=== PATIENT | female | born 2000 | race Native Hawaiian/Other Pacific Islander ===

== ENCOUNTER 2022-07-03 17:23 | Emergency (ER) | payer MEDICAID, SELFPAY ==
[2022-07-03 17:32] VITALS: BP 113/77; PULSE 128; RESP 18; TEMP 37.2; O2SAT 99; BMI 30.2
[2022-07-03] MEDS: 0.9 % SODIUM CHLORIDE 1000 ml 1,000 ML IV (18:29)
--- NOTE | 2022-07-03 18:29 | ED.GENADULT ---
HPI - General Adult General Date Seen: 07/03/22 Chief complaint: Cough Stated complaint: Chest Pain,Shortness of Breath,Abdominal Pain Time Seen by Provider: 07/03/22 17:48 Source: patient History of Present Illness HPI narrative: Patient is a 21-year-old young woman who is 7-8 weeks with her 2nd . She presents with a 2 week history of upper respiratory symptoms including congestion, cough, headache, body aches. No fevers. She says today the cough became worse. She has chest pain when she coughs. She does not note shortness of breath. She has not had vomiting. She has not had any vaginal bleeding but says when she coughs she has some pain in her lower abdomen. She has pain in her midthoracic region when she coughs as well. No lower extremity swelling or pain. No history of DVT PE. Related Data Home Medications Medication Instructions Recorded Confirmed No Known Home Medications 07/03/22 07/03/22 Allergies Allergy/AdvReac Type Severity Reaction Status Date / Time No Known Drug Allergies Allergy Verified 07/03/22 17:36 Review of Systems Status of ROS: Reports: 10 or more systems reviewed and unremarkable except as noted in History and below [facility] Social History Smoking Status: Never smoker Do you use any of these nicotine containing products: None Second hand tobacco smoke exposure: No How often do you have a drink containing alcohol: never AUDIT-C Alcohol total score: 0 Non-prescribed substance use: denies use Exam Narrative: Exam Narrative: Vital signs as noted above. In general, an alert, nontoxic young woman. Head: Normocephalic, atraumatic. Eyes: Pupils are equal reactive. Extraocular movements are full. Conjunctivae are slightly injected. No mattering. ENT: Mucous membranes are moist. Throat is normal. Nares are congested. Neck: Supple without lymphadenopathy. No stridor. Heart: Tachycardic and regular. No murmur. Lungs: Clear bilaterally. No increased work of breathing, crackles or wheezes. Abdomen: Soft and nontender. Extremities: Well perfused. No edema. No calf tenderness. Pulses intact. Neurologic: Patient is alert and oriented to person and place. Speech is fluent. Face is symmetric. Moves all extremities equally. Affect: Normal. Skin: Warm and dry. Well perfused. Const: Vital Signs, click to edit/add: Vital Signs - 24 hr 07/03/22 17:32 07/03/22 18:39 07/03/22 18:40 Temperature 99.0 F Pulse Rate 133 H 121 H Pulse Rate [Left P ulse Oximeter] 128 H Respiratory Rate 18 Blood Pressure 123/73 Blood Pressure [Le ft Upper Arm] 113/77 Pulse Oximetry 99 98 98 Oxygen Delivery Me thod Room Air 07/03/22 18:41 07/03/22 19:00 07/03/22 19:01 Temperature Pulse Rate 123 H 115 H 118 H Pulse Rate [Left P ulse Oximeter] Respiratory Rate Blood Pressure 115/68 Blood Pressure [Le ft Upper Arm] Pulse Oximetry 97 98 98 Oxygen Delivery Me thod Documenting provider has reviewed patient's vital signs: yes Course Course Hospital Course: Overall, patient's presentation is most suggestive of a viral upper respiratory infection, rule out superimposed pneumonia, dehydration, sepsis. I do not think this represents pulmonary embolism. I did order some basic labs, will give some IV fluids given presentation of tachycardia. I am going to defer chest x-ray given her early state. Right now her lungs are clear. O2 sats are normal. Will see how her labs look. Patient feels somewhat improved after fluids. Heart rate is 118. LFTs are a little elevated with an ALT of 70 and an AST of 53. I have relayed this to her, this can be followed by Ob. At this point in would suspect fatty liver. White count is normal at 7.8, left shift with 81% neutrophils. Hemoglobin is 13.2. Platelets are 278,000. Electrolytes are unremarkable. Blood sugar is 112. Lactate is 1. Bilirubin is normal. She is positive for influenza. I am going to cover her with an antibiotic given her , left shift, tachycardia and duration of symptoms. Recommend follow-up next week for recheck with OB. Return in the meantime for worsening shortness of breath, vomiting, high fevers or other worsening. Vital Signs Vital signs: Initial Vital Signs Temperature 99.0 F 07/03/22 17:32 Temperature Source Temporal Artery Scan 07/03/22 17:32 Pulse Rate 128 H 07/03/22 17:32 Pulse Rhythm 07/03/22 17:32 Pulse Strength 3+ Normal 07/03/22 17:32 Respiratory Rate 18 07/03/22 17:32 Blood Pressure 113/77 07/03/22 17:32 Blood Pressure Mean 89 07/03/22 17:32 Blood Pressure Position Sitting 07/03/22 17:32 Pulse Oximetry 99 07/03/22 17:32 Oxygen Delivery Method 07/03/22 17:32 Vital Signs Temperature 99.0 F 07/03/22 17:32 Pulse Rate 128 H 07/03/22 17:32 Respiratory Rate 18 07/03/22 17:32 Blood Pressure 113/77 07/03/22 17:32 Pulse Oximetry 99 07/03/22 17:32 Oxygen Delivery Method 07/03/22 17:32 Temperature 99.0 F 07/03/22 17:32 Pulse Rate 118 H 07/03/22 19:01 Respiratory Rate 18 07/03/22 17:32 Blood Pressure 115/68 07/03/22 19:01 Pulse Oximetry 98 07/03/22 19:01 Oxygen Delivery Method 07/03/22 17:32 Medical Decision Making Lab Data Labs: Lab Results 07/03/22 07/03/22 07/03/22 Range/Units 17:37 18:25 18:25 WBC 7.79 (4.50-11.00) K/uL RBC 4.51 (4.00-5.20) m/uL Hgb 13.2 (12.0-16.0) gm/dL Hct 39.1 (33.0-51.0) % MCV 87 (80-100) fL MCH 29 (26-34) pg MCHC 34 (32-36) gm/dL RDW Coeff of Mary 12.6 (11.5-15.5) % Plt Count 278 (140-440) K/uL Neut % (Auto) 81.5 H (42.0-72.0) % Lymph % (Auto) 5.8 L (20-44) % Geary % (Auto) 10.1 (0.0-11.0) % Eos % (Auto) 1.9 (0.0-7.0) % Baso % (Auto) 0.4 (0.0-3.0) % Neut # (Auto) 6.30 (1.7-7.0) K/uL Lymph # (Auto) 0.50 L (0.90-2.90) K/uL Geary # (Auto) 0.80 (0.00-0.90) K/UL Eos # (Auto) 0.15 (0.00-0.50) K/uL Baso # (Auto) 0.03 (0.00-0.30) K/uL Sodium 137 (135-149) mmol/L Potassium 3.5 L (3.6-5.1) mmol/L Chloride 106 (96-114) mmol/L Carbon Dioxide 23 (20-32) mmol/L BUN 10 (5-24) mg/dL Creatinine 0.5 (0.5-1.5) mg/dL Estimated Creat Clear 138.40 Estimated GFR 135 ml/min Glucose 112 (60-115) mg/dL Lactate (0.5-1.9) mmol/L Calcium 8.8 (8.4-10.6) mg/dL Total Bilirubin 0.5 (0.1-1.5) mg/dL Direct Bilirubin 0.1 (0.0-0.5) mg/dL AST 53 H (12-35) U/L ALT 70 H (4-35) U/L Alkaline Phosphatase 70 (40-150) U/L Total Protein 7.2 (6.0-8.3) g/dL Albumin 4.3 (3.3-5.0) g/dL SARS-CoV-2 (PCR) Negative SARS-CoV-2 (Negative) Influenza Type A (PCR) POSITIVE PCR FLU A A (Negative) Influenza Type B (PCR) Negative PCR FLU B (Negative) RSV (PCR) Negative PCR RSV (Negative) 07/03/22 Range/Units 18:25 WBC (4.50-11.00) K/uL RBC (4.00-5.20) m/uL Hgb (12.0-16.0) gm/dL Hct (33.0-51.0) % MCV (80-100) fL MCH (26-34) pg MCHC (32-36) gm/dL RDW Coeff of Mary (11.5-15.5) % Plt Count (140-440) K/uL Neut % (Auto) (42.0-72.0) % Lymph % (Auto) (20-44) % Geary % (Auto) (0.0-11.0) % Eos % (Auto) (0.0-7.0) % Baso % (Auto) (0.0-3.0) % Neut # (Auto) (1.7-7.0) K/uL Lymph # (Auto) (0.90-2.90) K/uL Geary # (Auto) (0.00-0.90) K/UL Eos # (Auto) (0.00-0.50) K/uL Baso # (Auto) (0.00-0.30) K/uL Sodium (135-149) mmol/L Potassium (3.6-5.1) mmol/L Chloride (96-114) mmol/L Carbon Dioxide (20-32) mmol/L BUN (5-24) mg/dL Creatinine (0.5-1.5) mg/dL Estimated Creat Clear Estimated GFR ml/min Glucose (60-115) mg/dL Lactate 1.0 (0.5-1.9) mmol/L Calcium (8.4-10.6) mg/dL Total Bilirubin (0.1-1.5) mg/dL Direct Bilirubin (0.0-0.5) mg/dL AST (12-35) U/L ALT (4-35) U/L Alkaline Phosphatase (40-150) U/L Total Protein (6.0-8.3) g/dL Albumin (3.3-5.0) g/dL SARS-CoV-2 (PCR) (Negative) Influenza Type A (PCR) (Negative) Influenza Type B (PCR) (Negative) RSV (PCR) (Negative) Discharge Plan Discharge Clinical Impression: Influenza A, Abnormal LFTs, Patient Disposition: Home, Self-Care Condition: Improved Instructions: Influenza (ED) Additional Instructions: Tylenol as needed for pain. Antibiotic as prescribed. Follow-up with OB if not improving over the next few days to week. Maintain fluids. Return for worsening. Prescriptions: No Action No Known Home Medications Follow Up/Referrals: Sanjuanita Braun MD [Primary Care Provider] - Stand Alone Forms: [facility] [employer] Info Instructions
[2022-07-03 18:34] LABS: Basophils Absolute Auto 0.03 K/uL (0.00-0.30); Basophils Percent Auto 0.4 % (0.0-3.0); Eosinophils Absolute Auto 0.15 K/uL (0.00-0.50); Eosinophils Percent Auto 1.9 % (0.0-7.0); Hematocrit 39.1 % (33.0-51.0); Hemoglobin* 13.2 gm/dL (12.0-16.0); Immature Granulocytes Abs Auto 0.02 K/uL (0.00-0.30); Immature Granulocytes Pct Auto 0.3 %; Lymphocytes Percent Auto 5.8 % (20-44); Mean Corpuscular HGB Conc 34 gm/dL (32-36); Mean Corpuscular Hemoglobin 29 pg (26-34); Mean Corpuscular Volume 87 fL (80-100); Monocytes Percent Auto 10.1 % (0.0-11.0); Neutrophils Percent Auto 81.5 % (42.0-72.0); Platelet Count* 278 K/uL (140-440); RDW Coefficient of Variation % 12.6 % (11.5-15.5); Red Blood Count 4.51 m/uL (4.00-5.20); White Blood Count* 7.79 K/uL (4.50-11.00)
[2022-07-03 18:39] VITALS: PULSE 133; O2SAT 98
[2022-07-03 18:40] VITALS: BP 123/73; PULSE 121; O2SAT 98
[2022-07-03 18:40] LABS: PCR FLU A POSITIVE PCR FLU A (Negative); PCR FLU B Negative PCR FLU B (Negative); PCR RSV Negative PCR RSV (Negative)
[2022-07-03 18:41] VITALS: PULSE 123; O2SAT 97
[2022-07-03] MEDS: ACETAMINOPHEN 500 MG TABLET 1000 MG PO (18:46)
[2022-07-03 18:51] LABS: Albumin* 4.3 g/dL (3.3-5.0); Chloride* 106 mmol/L (96-114); Sodium* 137 mmol/L (135-149)
[2022-07-03 18:53] LABS: Creatinine* 0.5 mg/dL (0.5-1.5); Estimated Glomerular Filt Rate 135 ml/min
[2022-07-03 18:54] LABS: Alanine Aminotransferase* 70 U/L (4-35); Alkaline Phosphatase* 70 U/L (40-150); Aspartate Amino Transferase* 53 U/L (12-35); Bilirubin Direct* 0.1 mg/dL (0.0-0.5); Bilirubin Total* 0.5 mg/dL (0.1-1.5); Blood Urea Nitrogen* 10 mg/dL (5-24); Calcium* 8.8 mg/dL (8.4-10.6); Carbon Dioxide* 23 mmol/L (20-32); Glucose* 112 mg/dL (60-115); Potassium* 3.5 mmol/L (3.6-5.1); Slide Review Reflex No; Total Protein* 7.2 g/dL (6.0-8.3)
[2022-07-03 18:54] LABS: SARS PCR* Negative SARS-CoV-2 (Negative)
[2022-07-03 19:00] VITALS: PULSE 115; O2SAT 98
[2022-07-03 19:01] VITALS: BP 115/68; PULSE 118; O2SAT 98
== END 2022-07-03 20:06 | disposition home or self-care (01) ==
PROVIDERS: Emergency Provider Emergency Medicine; PCP Family Medicine
DX: J10.1 Influenza due to other identified influenza virus with other respiratory manifestations (principal); O26.611 Liver and biliary tract disorders in pregnancy, first trimester; R79.89 Other specified abnormal findings of blood chemistry; Z3A.08 8 weeks gestation of pregnancy
CPT/HCPCS: 36415; 80048; 80076; 83605; 85025; 87502; 87634; 87635; 96360; 99284; A9270; J7030

== ENCOUNTER 2023-01-26 13:00 | Emergency (ER) | payer MEDICAID, SELFPAY ==
[2023-01-26 13:07] VITALS: BP 100/70; PULSE 74; RESP 24; TEMP 35.6; O2SAT 97; BMI 31.6
--- NOTE | 2023-01-26 13:30 | CRLHL7_ITS ---
For Patients: As a result of the Century Cures Act, medical imaging exams and procedure reports are released immediately into your electronic medical record. You may view this report before your referring provider. If you have questions, please contact your health care provider. INDICATION: Cough, shortness of breath TECHNIQUE: Chest 2 views. COMPARISON: None FINDINGS: The heart is normal in size. The pulmonary vasculature is within normal limits. The lungs are clear without focal consolidation, pleural effusion or pneumothorax. Portions of the right lung apex are obscured by but looks to be the patient`s hair. The bones are unremarkable. Surgical clips within the right upper quadrant of the abdomen. IMPRESSION: No acute process. Dictated by Danette Benites MD @ 01/26/2023 2:30:25 PM Dictated by: Danette Benites MD @ 01/26/2023 14:30:54 (Electronically Signed)
[2023-01-26] MEDS: IPRAT-ALBUT 0.5-2.5 MG/3 ML NEB 1 NEB IH (13:38)
--- NOTE | 2023-01-26 14:30 | ED_ITS ---
HPI - General Adult General Date Seen: 01/26/23 Chief complaint: Shortness of Breath/Dyspnea Stated complaint: shortness of breath Time Seen by Provider: 01/26/23 13:11 Source: patient Mode of arrival: ambulatory Limitations: no limitations History of Present Illness HPI narrative: Patient is a 22-year-old woman who is 36 weeks . She had called the clinic today due to cold symptoms and shortness of breath and was advised to come to the ER as the clinic is closed. She has been sick for couple of days with cough and congestion started to feel short of breath this morning. She has also had a right-sided headache for a couple of days. She has not had fevers. She is 36 weeks , uncomplicated , . She apparently went to the center prior to coming here and receive some fluids. Headache is feeling little better. Related Data Home Medications Medication Instructions Recorded Confirmed No Known Home Medications 07/03/22 01/26/23 Previous Rx's Medication Instructions Recorded albuterol sulfate 90 mcg/actuation 2 puff inhalation 6XD PRN 01/26/23 aerosol inhaler shortness of breath or wheezing #6.7 grams amoxicillin 875 mg-potassium 1 tab PO BID #20 tabs 01/26/23 clavulanate 125 mg tablet Allergies Allergy/AdvReac Type Severity Reaction Status Date / Time No Known Drug Allergies Allergy Verified 01/26/23 09:26 Review of Systems Status of ROS: Reports: 6 or more systems reviewed and unremarkable except as noted in History and below PFSH PFSH Social History What is your current living situation?: I presently have a place to live Problems where you live: no known problems In the past 12 months, utilities in danger of being shut off: no In the past 12 mos, have been you worried that your food would run out before you had money to buy more?: never true In the past 12 mos, the food you bought just didn't last and you didn't have money to buy more?: never true Smoking Status: Never smoker Do you use any of these nicotine containing products: None Second hand tobacco smoke exposure: No How often do you have a drink containing alcohol: never AUDIT-C Alcohol total score: 0 Non-prescribed substance use: denies use How often does anyone, including family, friends and others, physically hurt you : never How often does anyone, including family, friends and others, insult or talk down to you: never How often does anyone, including family, friends and others, threaten you with harm: never How often does anyone, including family, friends and others, scream or curse at you: never Exam Narrative: Exam Narrative: Vital signs as noted above. In general, an alert, well-appearing patient. Coughing, congested. Head: Normocephalic, atraumatic. Eyes: Pupils are equal reactive. Extraocular movements are full. Conjunctivae are normal. ENT: Mucous membranes are moist. Throat is normal. Nares congested. Neck: Supple without lymphadenopathy. Heart: Regular rate and rhythm. No murmur or rub. Lungs: Clear bilaterally. No increased work of breathing, crackles or wheezes. Breath sounds somewhat decreased bilaterally. Abdomen: Gravid and nontender. Extremities: Well perfused. No edema. No calf tenderness. Pulses intact. Neurologic: Patient is alert and oriented to person and place. Speech is fluent. Face is symmetric. Moves all extremities equally. Affect: Normal. Skin: Warm and dry. Well perfused. Const: Vital Signs, click to edit/add: Vital Signs - 24 hr 01/26/23 13:07 Temperature 96.0 F L Pulse Rate [Pulse Oximeter] 74 Respiratory Rate 24 Blood Pressure [Ri ght Upper Arm] 100/70 Pulse Oximetry 97 Oxygen Delivery Me thod Room Air Documenting provider has reviewed patient's vital signs: yes Course Course Hospital Course: She did not have any overt wheezing here but sounds a little decreased, give her DuoNeb but she does feel improved and sounds better in terms of air movement. I think her shortness of breath is likely related to some bronchospasm, I do not have suspicion of pulmonary embolism. She had a chest x-ray which by my review is negative. Final radiology report is likewise negative. We talked about her headache which sounds somewhat consistent with sinus congestion. Discussed that symptoms are likely viral although I have a lower threshold for treatment during . She would prefer to treat with antibiotics and so I will prescribe Augmentin for that. Albuterol as needed for chest congestion or shortness of breath. OB follow-up this week as planned unless symptoms worsen at which time she should be seen sooner or return to the ER. Vital Signs Vital signs: Initial Vital Signs Temperature 96.0 F L 01/26/23 13:07 Temperature Source Temporal Artery Scan 01/26/23 13:07 Pulse Rate 74 01/26/23 13:07 Pulse Rhythm Regular 01/26/23 13:07 Respiratory Rate 24 01/26/23 13:07 Blood Pressure 100/70 01/26/23 13:07 Blood Pressure Mean 80 01/26/23 13:07 Blood Pressure Position Supine 01/26/23 13:07 Pulse Oximetry 97 01/26/23 13:07 Oxygen Delivery Method Room Air 01/26/23 13:07 Vital Signs Temperature 96.0 F L 01/26/23 13:07 Pulse Rate 74 01/26/23 13:07 Respiratory Rate 24 01/26/23 13:07 Blood Pressure 100/70 01/26/23 13:07 Pulse Oximetry 97 01/26/23 13:07 Oxygen Delivery Method Room Air 01/26/23 13:07 Temperature 96.0 F L 01/26/23 13:07 Pulse Rate 74 01/26/23 13:07 Respiratory Rate 24 01/26/23 13:07 Blood Pressure 100/70 01/26/23 13:07 Pulse Oximetry 97 01/26/23 13:07 Oxygen Delivery Method Room Air 01/26/23 13:07 Discharge Plan Discharge Clinical Impression: Bronchitis, 36 weeks gestation of , Sinusitis Patient Disposition: Home, Self-Care Condition: Stable Instructions: Acute Bronchitis (ED) Additional Instructions: Medications as prescribed. Follow with OB this week as planned. Return at any time or call clinic for worsening symptoms. Prescriptions: New albuterol sulfate 90 mcg/actuation HFA aerosol inhaler 2 puff inhalation 6XD PRN (Reason: shortness of breath or wheezing) Qty: 6.7 0RF amoxicillin-pot clavulanate 875-125 mg tablet 1 tab PO BID Qty: 20 0RF No Action No Known Home Medications Follow Up/Referrals: Sanjuanita Braun MD [Primary Care Provider] - Stand Alone Forms: [facility] Info Instructions
== END 2023-01-26 14:35 | disposition home or self-care (01) ==
PROVIDERS: Emergency Provider Emergency Medicine; PCP Family Medicine
DX: J20.9 Acute bronchitis, unspecified (principal); Z3A.36 36 weeks gestation of pregnancy
CPT/HCPCS: 59025; 71046; 81001; 81003; 81015; 87086; 87186; 87635; 94640; 99213; 99284; A9270; J2405; J7120

== ENCOUNTER 2023-02-06 17:50 | Inpatient (IN) | payer MEDICAID, SELFPAY ==
[2023-02-06] VITALS (33 sets, daily range): BP systolic 99–135; BP diastolic 50–76; PULSE 65–163; RESP 16–18; TEMP 36.3–36.9; O2SAT 81–100; BMI 32.3
[2023-02-06 14:51] LABS: Amnisure Rom* POSITIVE
[2023-02-06 14:57] LABS: Clue Cells No Clue Cells Seen (None Seen); Trichomonas No Trichomonas Seen (None Seen); Yeast No Yeast Seen (None Seen)
--- NOTE | 2023-02-06 19:54 | PM.OBHPLI ---
OB - H&P: HPI Labor/Induction History of Present Illness Date Seen: 02/06/23 Chief Complaint: The patient is a 22 year old 2 para 1 at 3+4 weeks gestation by 1st trimester US, who presents in early labor. Chief complaint: Maternity : 2 Para: 1 Narrative: Maria Del Rosario Jackson is a 22 year old at 37+4 by 1st trimester US who presented to labor and delivery for blood tinged mucous noted when using the bathroom this morning. She reports losing a large mucous plug last night followed by irregular, uncomfortable cramping overnight. This morning she had blood tinged mucous when she used the bathroom. Denies leaking fluid, but has been cramping throughout the morning. Evaluation in triage showed negative wet prep, + amnisure, cervix 4/50/-1, bulging bag of angulo, with mild contractions on NST every 5-8 minutes. Over the course of a few hours, she progressed to 6 cm and contractions are now more uncomfortable. History of Present Dating criteria: based on 1st trimester US only care: good care Ultrasounds: normal 1st trimester US and normal mid trimester US Medical complications: none Labs Blood type: O (+) positive Rubella: immune RPR/VDLR: nonreactive GBS status: negative HBsAG: negative Meds Home Medications and Allergies Home Medications Medication Instructions Recorded Confirmed Type cefdinir 300 mg capsule 300 mg PO BID 02/06/23 02/06/23 History Allergies Allergy/AdvReac Type Severity Reaction Status Date / Time No Known Drug Allergies Allergy Verified 02/06/23 18:27 OB - H&P: Exam Physical Exam: Vital signs: Temp Pulse Resp BP Pulse Ox 98.4 F 80 16 122/61 98 02/06/23 18:40 02/06/23 14:10 02/06/23 18:40 02/06/23 14:10 02/06/23 14:10 Constitutional: Constitutional: no acute distress Routine HEENT Exam: Head: Present atraumatic Eye: Present EOMI and normal appearance ENT: Present mucous membranes moist Routine Neck Exam: Neck: Present full ROM Routine Respiratory Exam: Respiratory: Present CTA bilaterally Routine Cardiovascular Exam: Cardiovascular: RRR Detailed Labor and Delivery Exam: Patient Gravid: Yes Dilation (cm): 6 Effacement (%): 50 Cervix position: posterior Consistency: soft Contraction frequency (min): 4 Contraction intensity: Moderate Fetus (Single): Station: -1 Amniotic Membrane Status: intact (? ROM with positive amnisure, but no ongoing leaking) Monitor Accelerations: Present Monitor Decelerations: None [employer] Variability: Moderate (6-25) Routine Extremities Exam: Comments: no swelling Routine Neurological Exam: Present alert, oriented X3, CN II-XII intact and moving all extremities Routine Psychiatric Exam: Present normal affect OB - Problem Based A/P Additional Plan (1) Term : Status: Acute (2) Active labor: Status: Acute Plan Patient in active labor with possible ROM. Continue expectant management. Patient desires epidural for pain control and she will request as needed. Once comfortable, discussed AROM to augment labor if needed. Anticipate .
[2023-02-06] MEDS: LACTATED RINGERS 1000 ML 1,000 ML IV ×2 (20:25→21:42)
[2023-02-06] MEDS: ROPIVACAINE 0.2 % PF 10 ML INJ 20 MG EPIDURAL (21:21)
[2023-02-06] MEDS: LIDOCAINE 2% (PF) 5 ML VIAL EPIDURAL (21:21)
[2023-02-06] MEDS: ROPIVACAINE 0.2% 100 ml 100 ML 12 MG EPIDURAL (21:25)
--- NOTE | 2023-02-06 21:30 | PM.ANBPRC ---
[facility] Social History What is your current living situation?: I presently have a place to live Problems where you live: no known problems In the past 12 months, utilities in danger of being shut off: no In the past 12 mos, have been you worried that your food would run out before you had money to buy more?: never true In the past 12 mos, the food you bought just didn't last and you didn't have money to buy more?: never true Smoking Status: Never smoker Do you use any of these nicotine containing products: None Second hand tobacco smoke exposure: No How often do you have a drink containing alcohol: never AUDIT-C Alcohol total score: 0 Non-prescribed substance use: denies use How often does anyone, including family, friends and others, physically hurt you: never How often does anyone, including family, friends and others, insult or talk down to you: never How often does anyone, including family, friends and others, threaten you with harm: never How often does anyone, including family, friends and others, scream or curse at you: never Meds Home Medications and Allergies Home Medications Medication Instructions Recorded Confirmed Type cefdinir 300 mg capsule 300 mg PO BID 02/06/23 02/06/23 History Allergies Allergy/AdvReac Type Severity Reaction Status Date / Time No Known Drug Allergies Allergy Verified 02/06/23 18:27 Results Labs Labs: Laboratory Results - last 24 hr 02/06/23 02/06/23 14:25 14:40 Membrane Rupture POSITIVE Vaginal Trichomonas No Trichomonas Seen Vaginal Yeast No Yeast Seen Vaginal Clue Cells No Clue Cells Seen Vital Signs Vital Signs: Last Vital Signs Temp 98.4 F 02/06/23 20:48 Pulse 76 02/06/23 21:29 Resp 18 02/06/23 19:45 BP 120/65 02/06/23 21:29 Pulse Ox 96 02/06/23 21:30 Weight: 77.564 kg Height: 154.94 cm Anesthesia Procedures Epidural Insertion Patient Location: OB Start Time: 20:50 Stop Time: 21:32 Start Date: 02/06/23 Stop Date: 02/06/23 Reason for Block: procedure for pain Patient Position: sitting Performed By: Manty,Timur T Preanesthetic Checklist: IV checked, risks and benefits discussed, surgical consent, monitors and equipment checked, pre-op evaluation, timeout performed and anesthesia consent Prep: chlorhexidine gluconate Monitoring: blood pressure monitoring, continuous pulse oximetry and heart rate Approach: midline Vertebral Space: lumbar (1-5) Needle Type: Tuohy needle Injection Technique: continuous catheter Needle gauge: 17 Needle Length (cm): 10 cm Needle Insertion Depth (cm): 7 Catheter Gauge: 19 Catheter Type: multi-orifice Catheter at skin depth (cm): 13 Test Dose Result: negative and lidocaine 1.5% with epinephrine 1 to 200,000
--- NOTE | 2023-02-06 22:00 | P.OBPN_ITS ---
Subjective Date Seen: 02/06/23 Narrative: Maria Del Rosario is a 22 yo at 37+4 who presented in early labor, but progressed to active labor. Her contractions have become stronger and she requested an epidural. She is now comfortable. She underwent AROM with return of a large amount of clear fluid. Objective Vital Signs: Last Vital Signs Temp 98.4 F 02/06/23 20:48 Pulse 91 02/06/23 21:55 Resp 18 02/06/23 19:45 BP 117/62 02/06/23 21:55 Pulse Ox 100 02/06/23 21:45 Pelvic Exam Dilation (cm): 8 Effacement (%): 80 Station: -1 Contractions Monitor mode: External Contraction Frequency: 3-5 Contraction pattern: Regular Contraction intensity: Moderate Assessment Station: -1 Amniotic Membrane Status: AROM Status: Category l Heart Rate Baseline: 135 Senior Living Variability: Moderate (6-25) Monitor Accelerations: Present Monitor Decelerations: None Plan Plan: IUP at 37+4 in active labor. Epidural for analgesia. AROM with clear fluid. Anticipate an .
[2023-02-06] MEDS: OXYTOCIN 30 unit/500 ML in NS 30 UNIT/500 ML BAG 300 UNIT IVPB (23:44)
--- NOTE | 2023-02-06 23:58 | W.PM.VAGD1_ITS ---
Procedure Delivery date: 02/06/23 Procedure Done: Global Intrapartal Events: None Delivery augmentation: rupture of membranes Delivery monitor: external FHT and external uterine Route of delivery: Episiotomy description: None Laceration description: None Estimated blood loss (mL): 350 Anesthesia type: Epidural Narrative: The patient is a 22 year-old admitted on 02/06/2023 at 37 Weeks, 4 Days gestation for active labor.? Cervical exam on admission was 4 cm/50 % effaced/-1 station with membranes intact (although had a positive amnisure with no visible fluid) in vertex presentation.? Contractions were every 5-8 minutes.? heart rate demonstrated baseline 140 bpm with moderate variability, + accelerations, - decelerations; a category 1 tracing.? AROM occurred at 1800 with clear fluid. ? Labor Analgesia:? epidural ? Pitocin:? no ? Labor onset:? 1750 ? Complete:? 2314 ? Pushing:? 2318 ? heart tones during second stage were category 1. ? At 2342 a viable female delivered in vertex OA presentation over intact perineum via spontaneous vaginal delivery.? was placed on maternal abdomen.? Cord was clamped and cut after a 30-60 second delay.? Nose and mouth were bulb suctioned.? Infant weight pending.? 9 at 1 minute and 9 at 5 minutes.? Shoulder dystocia: no.? Nuchal cord: no. ? Placenta delivered spontaneously and complete at 2345 with a 3 vessel cord. ? Mother and were stable after delivery. ? Lacerations:? none. ? Blood loss: 350 mL. Blood loss measurement type: QBL ? Sponge and needles counts are correct. [place] Infant Gender: Female presentation: vertex Placental Delivery Description: Spontaneous Cord Description: 3 Vessels
[2023-02-07] VITALS (22 sets, daily range): BP systolic 90–122; BP diastolic 63–78; PULSE 55–88; RESP 16–18; TEMP 36.5–37.1; O2SAT 96–98
[2023-02-07] MEDS: IBUPROFEN 600 MG TABLET PO ×2 (02:48→11:00)
[2023-02-07] MEDS: LANOLIN CREAM 1 APPLIC TOPICAL (05:22)
--- NOTE | 2023-02-07 13:07 | PM.OBPNVD1 ---
OB - PN:Subj Subjective Time Seen by Provider: 00:15 Date Seen: 02/07/23 Interval history: Maria Del Rosario is a seen after an . She is doing well. Patient comments OB post-: no complaints OB - PN: Obj Exam Physical Exam: Vital signs: Temp Pulse Resp BP Pulse Ox O2 Del Method 97.8 F 82 16 101/63 97 Room Air 02/07/23 11:14 02/07/23 11:14 02/07/23 11:14 02/07/23 11:14 02/07/23 11:14 02/07/23 11:14 Constitutional: Constitutional: no acute distress Routine Abdominal Exam: Fundus: Present firm Comments: at umbilicus OB - PN: Obj Data Labs Labs: Laboratory Results - last 24 hr 02/06/23 02/06/23 14:25 14:40 Membrane Rupture POSITIVE Vaginal Trichomonas No Trichomonas Seen Vaginal Yeast No Yeast Seen Vaginal Clue Cells No Clue Cells Seen OB - PN: A/P Delivery Assessment and Plan (1) Vaginal delivery: Status: Acute Plan Plan: routine care Comments: likely d/c tomorrow.
--- NOTE | 2023-02-08 07:26 | P.DS_ITS ---
DS: Providers Provider Time Seen by Provider: : Date Seen: 02/08/23 Date of admission: 02/06/23 17:50 Primary care physician: Sanjuanita Braun MD Admitting Clinician: Sanjuanita Braun MD Attending Physician on discharge: Hazel Srivastava MD Date of Discharge: 02/08/23 DS: Diagnosis Discharge Diagnosis (1) Vaginal delivery: Status: Acute (2) Term : Status: Acute Exam Narrative: Exam Narrative: General appearance: Well-appearing adult female. Alert, oriented and appropriate. Sitting up in hospital bed. HEENT: EOMI, no conjunctival injection or discharge. MMM. Neck: Supple. CV: RRR, no rubs, murmurs or extra heart sounds. Pulm: CTAB, no wheezes, rales or rhonchi. Abdomen: Soft, non-tender. Fundus palpated 1 cm below the umbilicus. MSK: Moving all extremities. Ext: Warm and well-perfused. No LE edema. Skin: No rashes appreciated over exposed skin. Neuro: Grossly normal strength and sensation. No focal deficits. Psych: Normal affect. Const: Vital Signs, click to edit/add: Vital Signs - 24 hr 02/07/23 07:50 02/07/23 11:14 02/07/23 17:09 Temperature 98.0 F 97.8 F 97.7 F Pulse Rate [Pulse Oximeter] 80 82 55 L Respiratory Rate 16 16 16 Blood Pressure [Le ft Arm] 101/63 101/63 100/65 Pulse Oximetry 97 97 98 Oxygen Delivery Me thod Room Air Room Air Room Air 02/07/23 19:58 02/07/23 23:00 Temperature 98.1 F 98.1 F Pulse Rate [Pulse Oximeter] 66 70 Respiratory Rate 16 18 Blood Pressure [Le ft Arm] 102/64 90/66 Pulse Oximetry 98 98 Oxygen Delivery Me thod Room Air Room Air OB - DS: Summary Hospital Course Hospital Course: The patient is a 22 year old at 37+4 weeks gestation that was admitted to the Center on 02/06/23 for labor. She had an uncomplicated vaginal d elivery. She delivered a viable female . She is breast and bottle feeding. the patient has done well. Peripartum Data Infant delivery method: Vaginal Laceration description: None complications: none Gender: Female Discharge Plan: Home Status at Discharge Functional status at discharge: independent ambulation Overall status at discharge: patient is progressing back to baseline Time Spent with Patient Time attestation: Total time spent providing and/or coordinating discharge services: Time spent: Less than 30 minutes Discharge Plan Discharge Disposition: Home, Self-Care Date of Admission: 02/06/23 17:50 Attending Provider on Discharge: Hazel Srivastava Primary Care Provider: Sanjuanita Braun Condition: Stable Anticipated Discharge Date/Time: 02/08/23 07:22 Discharge Medications: New acetaminophen 500 mg Tablet 1,000 mg PO Q6H PRNQty: 30 0RF docusate sodium 100 mg Capsule 100 mg PO DAILY Qty: 30 0RF ibuprofen 600 mg Tablet 600 mg PO Q6H PRNQty: 30 0RF Continued albuterol sulfate 90 mcg/actuation HFA aerosol inhaler 2 puff inhalation 6XD PRN (Reason: shortness of breath or wheezing) Qty: 6.7 0RF Discontinued cefdinir 300 mg capsule 300 mg PO BID Discharge Orders: Discharge Order (Routine); Ordered 02/08/23 Ordered By: Hazel Srivastava Patient Education: OB Vaginal/Breast Feeding Activity Level: Activity as Tolerated Discharge Diet: Regular Follow Up Appointments: Sanjuanita Braun MD [Primary Care Provider] - (6 weeks post-) Forms: [facility] Info Instructions
[2023-02-08 09:01] VITALS: BP 106/68; PULSE 80; RESP 18; TEMP 36.4; O2SAT 97
[2023-02-08] MEDS: IBUPROFEN 600 MG TABLET PO (09:12)
[2023-02-08] MEDS: DOCUSATE SODIUM 100 MG CAPSULE PO (09:12)
[2023-02-08 16:13] VITALS: BP 104/66; PULSE 75; RESP 16; TEMP 36.7
== END 2023-02-08 17:00 | disposition home or self-care (01) | DRG 807 ==
LOC: OB OUT 18:06 → OB 18:06
PROVIDERS: Admitting Provider Family Medicine; PCP Family Medicine; Visit Provider Family Medicine
DX: O80 Encounter for full-term uncomplicated delivery (principal); Z37.0 Single live birth; Z3A.37 37 weeks gestation of pregnancy
CPT/HCPCS: 01967; 36415; 81003; 84112; 85018; 87210; A9270; J2371; J2795; J7120

== ENCOUNTER 2023-11-08 17:04 | Outpatient (CLI) | payer MEDICAID, SELFPAY ==
--- OUTSIDE RECORDS SUMMARY | 2023-11-08 17:06 | XMS_ITS | Clinical Summary ---
Author Name Unknown Organization [facility] Address [place], [place] [address] Care Team Providers Care Cardiology Clinical Nurse Specialist Name Role Phone AparnaSanjuanita MD Primary Care Provider Allergies No known active allergies Medications Medication Sig Dispensed Refills Start Date End Date Status vit 28/iron fum/folic (multivitamin folic acid 1 mg) Take 1 Tablet by mouth once daily. 0 07/13/2022 Active Active Problems Problem Noted Date Diagnosed Date Encounter for supervision of normal in first trimester 08/26/2023 #3 08/13/2023 Overview: Estimated Date of Delivery: 03/14/24 Patient's last menstrual period was 06/08/2023 (approximate). GBS- 28wk labs- Last Tdap- 12/12/22 Last Flu vaccine- 2018 OB Labs: ABORH Date Value Ref Range Status 08/09/2023 O Rh Positive Final ANTIBODY SCREEN Date Value Ref Range Status 08/09/2023 Negative Negative Final TREPONEMA PALLIDUM Date Value Ref Range Status 08/09/2023 Non-Reactive Non-Reactive Final RUBELLA IGG ANTIBODY Date Value Ref Range Status 08/09/2023 1.48 >=1.00 Index Final INTERPRETATION Date Value Ref Range Status 08/09/2023 Positive Final Comment: Presence of detectable IgG antibodies. A positive result generally indicates exposure to the virus or previous vaccination, but is not an indication of active infection or stage of disease. HBSAG Date Value Ref Range Status 08/09/2023 Nonreactive Nonreactive Final HEPATITIS C ANTIBODY Date Value Ref Range Status 08/09/2023 Non-Reactive Non-Reactive Final Comment: Please note, per www.CDC.gov: If a patient is known to be at high risk of HCV infection, or is symptomatic, and the physician's suspicion of HCV infection is high, HCV RNA testing is often employed and is of diagnostic value, even after an initial negative anti-HCV test result. HIV-1/HIV-2 SCREEN Date Value Ref Range Status 08/09/2023 Non-Reactive Non-Reactive Final Comment: HIV-1 p24 and HIV-1/HIV-2 Ab Not Detected. HEMOGLOBIN Date Value Ref Range Status 08/09/2023 12.4 12.0 - 16.0 g/dL Final PLATELET COUNT Date Value Ref Range Status 08/09/2023 336 140 - 440 thou/cu mm Final CHLAMYDIA PROBE Date Value Ref Range Status 08/09/2023 Negative Final N GONORRHOEAE PROBE Date Value Ref Range Status 08/09/2023 Negative Final No Known Allergies OB History Para Term AB Living 3 2 2 0 0 2 SAB IAB Ectopic Multiple Live Births 0 0 0 0 2 # Outcome Date GA Lbr Jhonatan/2nd Weight Sex Delivery Anes PTL Lv 3 Current 2 Term 02/06/23 37w4d 3.23 kg (7 lb 2 oz) F Vag N LOBITO Name: Em Apgar1: 9 Apgar5: 9 1 Term 04/09/19 39w1d 3.15 kg (6 lb 15 oz) F Vag EPIDURAL N LOBITO Name: Gracie Past Medical History: . Date GBS (group B Streptococcus carrier), +RV culture, currently 2018 No Significant Past Medical History Past Surgical History: . Laterality Date (IA) SC LAP APPENDECTOMY 08/26/14 LAPAROSCOPIC CHOLECYSTECTOMY 04/23/2019 Dr. Bejarano [facility] #3 Problems (from 08/09/23 to present) No problems associated with this episode. Maribel Win RN ....08/13/2023 12:22 PM Pap smear for cervical cancer screening 07/30/19 23 Overview: 06/2022 NIL Plan: Pap/HPV due in 3 years Gallstones 03/31/2019 Hidradenitis 06/09/2014 Vitamin D deficiency 02/05/2014 Estimated Date of Delivery Comme nts Yes 03/20/2024 Based on Ultraso und Resolved Problems Problem Noted Date Diagnosed Date Resolved Date Encounter for supervision of normal in first trimester 07/13/2022 08/13/2023 Overview: Estimated Date of Delivery: 02/23/22 (US). Patient's last menstrual period was 03/15/2022 (approximate). GBS- Last Tdap- 01/27/19 Last Flu vaccine- 09/16/18 Glucose (GTT) result- OB labs: Recent Labs 07/19/22 1329 HGB 12.7 ABORH O Rh Positive RCBANTIBODY Negative TREPONEPALLI Negative RUBELLAIGG 1.52 Positive HEPBSAGSCRLC Negative No Known Allergies OB History Para Term AB Living 2 1 1 0 0 1 SAB IAB Ectopic Multiple Live Births 0 0 0 0 1 # Outcome Date GA Lbr Jhonatan/2nd Weight Sex Delivery Anes PTL Lv 2 Current 1 Term 04/09/19 39w1d 3.15 kg (6 lb 15 oz) F Vag EPIDURAL N LOBITO Name: Gracie Past Medical History: . Date ? ? No Significant Past Medical History Past Surgical History: . Laterality Date ? ? (IA) SC LAP APPENDECTOMY 08/26/14 ? ? LAPAROSCOPIC CHOLECYSTECTOMY 04/23/2019 Dr. RichardsDarci [facility] No data on file. Problems (from 06/25/22 to present) No problems associated with this episode. Maribel Win RN ....07/19/2022 3:43 PM Encounter for supervision of normal first in third trimester 09/16/2018 08/13/2023 Overview: Component Latest Ref Rng & Units 03/17/2019 03/17/2019 03/17/2019 3:00 PM 3:00 PM 3:21 PM Culture RESULT (A) Streptococcus Group B HEMOGLOBIN 12.0 - 16.0 g/dL 11.3 (L) MCV 80 - 100 fL 88 Component Latest Ref Rng & Units 01/27/2019 TREPONEMA PALLIDUM Negative Negative Estimated Date of Delivery: 04/15/19 Patient's last menstrual period was 07/09/2018 (approximate). Last Tdap- 01/27/2019 Last Flu vaccine- 09/16/2018 Glucose (GTT) result- Component Latest Ref Rng & Units 01/27/2019 HEMOGLOBIN 12.0 - 16.0 g/dL 11.3 (L) MCV 80 - 100 fL 92 GLUCOSE,GESTATIONAL 65 - 139 mg/dL 105 20 week US: IMPRESSION: 1.Breech presentation. 2.No intrinsic abnormalities noted on anatomic survey. 3.Composite ultrasound age 19 weeks 2 days with DASH of 04/21/2019 with an earlier established DASH of 04/15/2019. No Known Allergies OB History Para Term AB Living 1 0 0 0 0 0 SAB TAB Ectopic Multiple Live Births 0 0 0 0 0 # Outcome Date GA Lbr Jhonatan/2nd Weight Sex Delivery Anes PTL Lv 1 Current Create lab flowsheet for OB labs- Component Latest Ref Rng & Units 09/16/2018 HEMOGLOBIN 12.0 - 16.0 g/dL 11.8 (L) MCV 80 - 100 fL 89 ANTIBODY SCREEN Negative Negative SPECIMEN EXPIRATION DATE/TIME 09/19/18 23:59 HIV-1/HIV-2 ANTIBODY Non-Reactive Non-Reactive ABORH O Rh Positive HBSAG Nonreactive Nonreactive TREPONEMA PALLIDUM Negative Negative Past Medical History: Diagnosis Date ? ? No Significant Past Medical History Past Surgical History: Procedure Laterality Date ? ? SC LAP APPENDECTOMY 08/26/14 No data on file. 1st pregnacy Problems (from 09/12/18 to present) No problems associated with this episode. Alison Yañez, BATOOLC.....09/18/2018 10:15 AM Encounters Date Type Department Care Team Description 11/08/2023 2:25 PM CDT OB Encounter [facility] [address] [place] [address] Sanjuanita Braun MD Care (Follow up from L&D. When she goes to stand up she has a lot of pain and pressure and feels like there is an egg in there. If she lays on her back and lift her legs all pain and discomfort seems to go away.) 11/08/2023 Telephone [facility] [address] [place] [address] Sanjuanita Braun MD fyi 11/08/2023 Travel 10/31/2023 11:20 AM CDT OB Encounter [facility] [place] [address] [address] Sanjuanita Braun MD Care (19w 6d/) 10/31/2023 10:30 AM CDT Ancillary Procedure [facility] [place] [address] [place] [address] [address] 10/31/2023 Travel 10/02/2023 3:15 PM CDT OB Encounter [facility] [place] [address] [place] [address] [address] Sanjuanita Braun MD Care (15wk 5d) 10/02/2023 Travel 09/17/2023 Telephone [facility] [place] [address] [place] [address] [address] Sanjuanita Braun MD Appointment Request 09/02/2023 Telephone [facility] [place] [address] [place] [address] [address] Sanjuanita Braun MD Results 08/31/2023 Orders Only [facility] Scanner 1 scan: (1-Ord) AMARA 08/26/2023 9:45 AM GRATING MACHINE OPERATOR Ancillary Procedure [facility] [place] [address] [place] [address] [address] 08/26/2023 8:15 AM GRATING MACHINE OPERATOR OB Encounter [facility] [place] [address] [place] [address] [address] Sanjuanita Braun MD Care (11w 2d) 08/26/2023 Travel 08/09/2023 2:30 PM GRATING MACHINE OPERATOR OB Encounter [facility] [place] [address] [place] [address] [address] Education (RN OB intake) 08/09/2023 Travel from Last 3 Months Immunizations Name Administration Dates Next Due Hepatitis A (Peds) 05/11/2008,09/30/2007 Hepatitis B (Peds) 02/03/2008,09/30/2007, 008 Human Papilloma Virus Vaccine 09/09/2012, 011,07/25/2010 Inactivated Polio Vaccine 09/08/2014,,09/30/2007,08/05 Influenza, IIV3 (Age 6-35 mos) 09/09/2012 Influenza, IIV3 (Age >=3 years) 09/30/2007 Influenza, IIV4 09/16/2018 Influenza,LAIV4 Live Intrana deniz (Flumist) 07/25/2010,05/11/2008 MMR 09/30/2007,08/05/2007 Meningococcal Vaccine (Menactra) 07/25/2010 Meningococcal Vaccine (Menveo) 07/22/2018 Td, Preservative Free (age >= 7 Years) 8,09/30/2007,08/05/2007 Tdap 12/12/2022,01/27/2019,07/25/2010 Varicella Vaccine 12/02/2007,08/05/2007 Family History Medical History Relation Name Comments No Known Problems Brother No Known Problems Daughter 1 No Known Problems Daughter 2 Diabetes Father Diabetes Maternal Grandmother Diabetes Mother No Known Problems Paternal Grandfather Diabetes Paternal Grandmother No Known Problems Sister Relation Name Status Comments Brother Alive Daughter 1 Alive Daughter 2 Alive Father Alive Maternal Grandfather Maternal Grandmother Mother Alive Paternal Grandfather Alive Paternal Grandmother Alive Sister Alive Social History Tobacco Use Types Packs/Day Years Used Date Smoking Tobacco: Never Smokeless Tobacco: Never Tobacco Cessation:Counseling Given: Yes Alcohol Use Standard Drinks/Week Comments Not Currently 0 (1 standard drink = 0.6 oz pur e alcohol) socially PHQ-2 Answer Date Recorded PHQ-2 TOTAL SCORE 0 04/04/2023 Social Connections Answer Date Recorded Frequency of Communication with Friends and Fami ly 0 10/02/2023 Financial Resource Strain Answer Date R ecorded Difficulty of Paying Living Expenses 3 10/02/2023 Difficulty of Paying Living Expenses Not on file 10/02/2023 Food Insecurity Answer Date Recorded Worried About Running Out of Food in the Last Ye ar 1 10/02/2023 Transportation Needs Answer Date Record ed Lack of Transportation (Medical) 1 10/02/2023 Housing Stability Answer Date Recorded Unable to Pay for Housing in the Last Year 1 10/02/2023 Estimated Date of Delivery Comme nts Yes 03/20/2024 Based on Ultraso und Sex and Gender Information Value Date Recorded Sex Assigned at Not on file Gender Identity Not on file Sexual Orientation Not on file Obstetrics History Para Term AB IAB SAB Ectopic Multiple Livin g Live Births 3 2 2 0 0 0 0 0 0 2 2 Date Outcome GA Total Labor Labor/2nd/3rd Weight Sex Delivery Anes PTL Lobito A1 A5 Name Cl in 04/09 Term 39w 1d 16h 00m 3.15 kg (6 lb 15 oz) F Vag Epidu ral N Mavis ng Selen a Arya haile Complications:None Delivery Location:[facility] 02/06 Term 37w 4d 3.23 kg (7 lb 2 oz) F Vag N Mavis ng 9 9 Isabe lla Arya haile, Tashia Sanchez MD Complications:None Delivery Location:[facility] ( [place]) Current Summary Episode Dates Number of Fetuses Estimated Date of Delivery 08/09/2023 - Present (11/08/2023) 03/20/2024 (set by Katie Braun MD on 08/26/2023 based on Ultrasound on 08/26/2023) Dating Summary Based On DASH GA Diff Last Menstrual Period on 06/08/2023 (Approximate ) 03/14/2024 +6d Ultrasound on 08/26/2023 03/20/2024 Working GA:10w3d Alternate DASH Entry 03/14/2024 +6d Vitals Pregravid Weight Height TWG (As of 11/08/2023) Pregrav id BMI 1.555 m (5' 1.22) Notes Progress Notes - OB Encounte r - 10/31/2023 - GA:19w6d 10/31/2023 - 19w6d - Sanjuanita Braun MD SUBJECTIVE: Maria Del Rosario Jackson is a 23 y.o. female at 19+6 weeks. No concerns. See visit comments. OBJECTIVE: see OB vitals flow sheet ASSESSMENT : 19+6 weeks gestation with no complications PLAN: labor signs and symptoms reviewed with patient including pain, cramping, bleeding or leaking fluid. RTC 4 weeks. Sanjuanita Braun MD .................... 10/31/2023 11:38 AM Progress Notes - OB Encounte r - 10/02/2023 - GA:15w5d 10/02/2023 - 15w5d - Sanjuanita Braun MD SUBJECTIVE: Maria Del Rosario Jackson is a 22 y.o. female at 15+5 weeks. No concerns. See visit comments. OBJECTIVE: see OB vitals flow sheet ASSESSMENT : 15+5 weeks gestation with no complications PLAN: labor signs and symptoms reviewed with patient including pain, cramping, bleeding or leaking fluid. RTC 4 weeks with ultrasound. Sanjuanita Braun MD .................... 10/02/2023 3:55 PM Progress Notes - OB Encounte r - 08/26/2023 - GA:10w3d 08/26/2023 - 10w3d - Sanjuanita Braun MD FIRST OB VISIT HPI: Maria Del Rosario Jackson is a 22 y.o. female at 10w3d with sotelo intrauterine here today for a initial OB exam. Estimated due date is Estimated Date of Delivery: 03/14/24 based on unsure LMP, dating ultrasound today gives her an EDC of 03/20/2024. Nausea/Vomiting: no Breast tenderness: no Fatigue: no Bleeding: no Taking vitamins: yes Options of sequential screen, cell-free DNA testing, amniocentesis were discussed. Patient is interested in pursuing testing. They would like to know the results of sex, communicated to Maria Del Rosario's sister. AMA: no Previous : no OB History Para Term AB Living 3 2 2 0 0 2 SAB IAB Ectopic Multiple Live Births 0 0 0 0 2 # Outcome Date GA Lbr Jhonatan/2nd Weight Sex Delivery Anes PTL Lv 3 Current 2 Term 02/06/23 37w4d 3.23 kg (7 lb 2 oz) F Vag N LOBITO 1 Term 04/09/19 39w1d 3.15 kg (6 lb 15 oz) F Vag EPIDURAL N LOBITO Past Medical History: . Date GBS (group B Streptococcus carrier), +RV culture, currently 2018 No Significant Past Medical History Past Surgical History: . Laterality Date (IA) SC LAP APPENDECTOMY 08/26/14 LAPAROSCOPIC CHOLECYSTECTOMY 04/23/2019 Dr. Bejarano [facility] Family History Problem Relation Age of Onset Diabetes Mother Diabetes Father No Known Problems Sister No Known Problems Brother No Known Problems Daughter No Known Problems Daughter Diabetes Maternal Grandmother Diabetes Paternal Grandmother No Known Problems Paternal Grandfather Social History Tobacco Use Smoking status: Never Smokeless tobacco: Never Substance Use Topics Alcohol use: Not Currently Comment: socially Current Outpatient Medications Medication Sig Breast Pump Purchase Electric breast pump for home use. Gestational age at delivery: 40 weeks. Reason for need: return to work. Length of need: 99 months (lifetime use) vit 28/iron fum/folic (multivitamin folic acid 1 mg) Take 1 Tablet by mouth once daily. triamcinolone (ARISTOCORT; KENALOG) 0.1 % cream Apply topically to affected area(s) three times daily. Use for up to 2 weeks at a time. No current facility-administered medications for this visit. Medications have been reviewed by me and are current to the best of my knowledge and ability. ALLERGIES Patient has no known allergies. MENTAL HEALTH HISTORY History of psychiatric diagnosis: None Current mental health provider: not applicable Currently taking any psychiatric medications? Not Applicable INFECTION HISTORY Current Drug Use: none Relevant infection history from OB Questionnaire: none REVIEW OF SYSTEMS Comprehensive ROS complete and negative other than noted in HPI and on OB Questionnaire. PHYSICAL EXAM BP 103/66 (Cuff Site: Right Arm, Position: Sitting, Cuff Size: Adult Regular Long) Pulse 80 Wt 73.9 kg (163 lb) LMP 06/08/2023 (Approximate) SpO2 98% BMI 30.58 kg/m?? General Appearance: Alert, appropriate appearance for age. No acute distress. HEENT Exam: Grossly normal. Neck/Thyroid Exam: Supple, no masses, nodes or enlargement. Lungs: Clear to auscultation bilaterally. Breast Exam: Not indicated. Cardiovascular Exam: Regular rate and rhythm. S1, S2, no murmur. Abd: Soft, non-tender, no masses or organomegaly. Skin: no rashes or lesions. Lymphatics: no nodes palpable. Psychiatric Exam: Alert and oriented x 3, appropriate affect. Pelvic Exam: not indicated ASSESSMENT/PLAN 22 y.o. at 11w2d with sotelo intrauterine . ICD-10-CM 1. Encounter for supervision of other normal in first trimester Z34.81 DNA SCREEN SEND OUT Satisfactory exam. Demonstrates appropriate and health-seeking behaviors toward her . Verbalizes good understanding of care schedule and the importance of coming to each visit as scheduled. Start/continue vitamins. Reviewed labs. She was encouraged to call the office with any questions or concerns. She did get her flu shot this fall at an outside clinic. Body mass index is 30.58 kg/m??. Diet and expected weight gain discussed with patient. DEPRESSION SCREEN 04/04/2023 9:00 AM PHQ Depression Screening Date of PHQ exam (doc flow) 04/04/2023 1. Lack of interest/pleasure 0 - Not at all 2. Feeling down/depressed 0 - Not at all PHQ-2 TOTAL SCORE 0 Sanjuanita Braun MD ING MACHINE OPERATOR Progress Notes - OB Encounte r - 08/09/2023 - GA:8w0d 08/09/2023 - 8w0d - Maribel Win RN SUBJECTIVE: Maria Del Rosario Jackson is a 22 y.o. female, , who presents for confirmation and ob education. Patient presents to the clinic with daughter. Had positive test at home. This was Unplanned, Desired. Patient was not on contraception. Date Reliability: approximate (month known) DASH based on LMP: Estimated Date of Delivery: 03/14/24 Current symptoms include: Nausea:Yes Vomiting:No Breast tenderness:No Vaginal bleeding:No Vaginal discharge:No Pelvic cramping:No Fatigue:Yes Previous Delivery Type: normal vaginal delivery Occupation of patient: [employer] Name of Partner or Father of baby: Bridger. MENSTRUAL HISTORY: Patient's last menstrual period was 06/08/2023 (approximate).: Cycle Regularity: one one period after having last baby 02/06/23 Past Medical History: . Date GBS (group B Streptococcus carrier), +RV culture, currently No Significant Past Medical History OB History Para Term AB Living 3 2 2 0 0 2 SAB IAB Ectopic Multiple Live Births 0 0 0 0 2 # Outcome Date GA Lbr Jhonatan/2nd Weight Sex Delivery Anes PTL Lv 3 Current 2 Term 02/06/23 37w4d 3.23 kg (7 lb 2 oz) F Vag N LOBITO 1 Term 04/09/19 39w1d 3.15 kg (6 lb 15 oz) F Vag EPIDURAL N LOBITO 5P'S SUBSTANCE ABUSE SCREEN FOR ALCOHOL, DRUGS AND TOBACCO: Did any of your parents have a problem with using alcohol or drugs? No Do any of your friends (peers) have problems with drug or alcohol use? No Does your partner have a problem with drug or alcohol use? No Before you knew you were , how often did you drink beer, wine, wine coolers or liquor or use any kind of drug? Rarely In the past month, how often did you drink beer, wine, wine coolers or liquor or use any kind of drug? Not at all How much did you smoke, vape or use tobacco or nicotine in any form before you knew you were ? Don't Smoke, Vape or use Tobacco Genetic Screening Genetic Screening/Teratology Counseling- Includes patient, baby's father, or anyone in either family with: Patient's age 35 years or older as of estimated date of delivery: No Thalassemia (Belarusian, Indian, Mediterranean, or background): MCV less than 80: No Neural tube defect (Meningomyelocele, Spina bifida, or Anencephaly): No Congenital heart defect: No Down syndrome: No Sagar-Sachs (Ashkenazi Confucianism, Cajun, Italian [place]): No Jared disease (Ashkenazi Confucianism): No Familial dysautonomia (Ashkenazi Confucianism): No Sickle cell disease or trait (): No Hemophilia or other blood disorders: No Muscular dystrophy: No Cystic fibrosis: No Amboy's chorea: No Intellectual disability and/or autism: No Other inherited genetic or chromosomal disorder: No Maternal metabolic disorder (eg. Type 1 diabetes, PKU): No Patient or baby's father had child with defects not listed above: No Recurrent loss, or a stillbirth: No Medications (including supplements, vitamins, herbs, or OTC drugs)/illicit/recreational drugs/alcohol since last menstrual period: No CURRENT MEDICATIONS: Current Outpatient Medications Medication Sig Breast Pump Purchase Electric breast pump for home use. Gestational age at delivery: 40 weeks. Reason for need: return to work. Length of need: 99 months (lifetime use) vit 28/iron fum/folic (multivitamin folic acid 1 mg) Take 1 Tablet by mouth once daily. triamcinolone (ARISTOCORT; KENALOG) 0.1 % cream Apply topically to affected area(s) three times daily. Use for up to 2 weeks at a time. No current facility-administered medications for this visit. Medications have been reviewed by me and are current to the best of my knowledge and ability. ALLERGIES: Patient has no known allergies. OBJECTIVE: LMP 06/08/2023 (Approximate) Yes ,URINE (no units) Date Value 06/25/2022 Positive (Positive) ASSESSMENT/PLAN: No diagnosis found. EDUCATION/PATIENT INSTRUCTIONS - Advised patient to start/continue vitamin. - Discussed risk of using alcohol, tobacco, other drugs in . - Discussed healthy lifestyle in . - Provided copy of Beginnings book and book inserts, discussed [id number] medications, and follow up. - Encouraged patient to call clinic at [phone] with any vaginal bleeding, fluid leaking from vagina, severe abdominal pain, nausea with severe vomiting, fever higher than 100.4F, painful urination, headache not relieved by Tylenol, or other concerns - labs completed with today's visit. - Patient informed to schedule 1st trimester dating ultrasound between 7-10 weeks. - Initial OB appointment with FP/OB scheduled. PHQ-9, and COVID-19 vaccine discussion to be completed at this visit. Future Appointments Date Time Provider Department Center 08/26/2023 8:15 AM Sanjuanita Braun MD [facility] 08/26/2023 9:45 AM [facility] ULTRASOUND [facility] Maribel Win RN .................... 08/09/2023 3:12 PM ING MACHINE OPERATOR Last Filed Vital Signs Vital Sign Reading Time Taken Comments Blood Pressure 102/65 11/08/2023 2:34 PM CDT Pulse 88 11/08/2023 2:34 PM CDT Temperature 37.2 ??C (99 ??F) 06/25/2022 10:50 AM GRATING MACHINE OPERATOR Respiratory Rate 15 09/09/2018 3:05 PM GRATING MACHINE OPERATOR Oxygen Saturation 98% 11/08/2023 2:34 PM CDT Inhaled Oxygen Concentration - - Weight 76 kg (167 lb 9.6 oz) 11/08/2023 2:34 PM CDT Height 155.5 cm (5' 1.22) 08/09/2023 3:55 PM CS T Body Mass Index 31.44 08/09/2023 3:55 PM GRATING MACHINE OPERATOR Plan of Treatment Upcoming Encounters Date Type Department Care Team (Late st Contact Info) Description 11/28/2023 10:05 AM CDT OB Encounter [facility] [address] [place] [address] Sanjuanita Braun MD [address] [place] [address] Health Maintenance Due Date Last Done Comments COVID-19 vaccine series ( season) 2023 07/03/2021, 06/05/2021 Influenza for age 9-49 03/15/2024 9, 07/25/2010, 05/11/2008, Additional history exists Depression screening for age 12+ 04/04/2024 04/04/2023, 06/09/2019, 07/22/2018, Additional history exists BMI (ht and wt on same day) for age 18+ 08/09/2024 08/09/2023, 07/13/2022, 02/26/2020, Additional history exists Pap test for age 21-65 07/13/2025 07/13/2022 Tetanus booster 12/12/2032 12/12/2022, 01/12, 07/25/2010, Additional history exists HPV series for age 9-26 Completed 09/09/19 13, 10/03/2010, 07/25/2010 Tdap Completed 12/12/2022, 01/12, 07/25/2010 HIV for age 15-65 Completed 08/09/2023, , 09/16/2018 Hepatitis C screening for age 18-79 Completed 08/09/2023, 07/13/2022 Pneumococcal series for age 6-64 Aged Out No longer eligible based on patient's age to complete this topic Procedures Procedure Name Priority Date/Time Associated Diagnosis Comments URINALYSIS MICROSCOPIC Routine 11/08/2023 4:11 PM CDT Urinary obstruction UA W/ SEDIMENT EXAM REFLEXED PER CRITERIA Routine 11/08/2023 4:11 PM CDT Urinary obstruction CREATININE,ISTAT Routine 11/08/2023 3:19 PM CDT Urinary obstruction US OB BASIC ANATOMY SCREEN SINGLE TA Routine 10/31/2023 11:22 AM CDT Encounter for supervision of other normal in second trimester SCAN-LABORATORY REPORT 08/31/2023 12:00 AM GRATING MACHINE OPERATOR US OB 1ST TRI SINGLE TA Routine 08/26/2023 9:37 AM GRATING MACHINE OPERATOR Encounter for supervision of other normal in first trimester TYPE & SCREEN Routine 08/09/2023 3:55 PM GRATING MACHINE OPERATOR Encounter for supervision of other normal in first trimester ANTI HCV Routine 08/09/2023 3:55 PM GRATING MACHINE OPERATOR Encounter for supervision of other normal in first trimester HBSAG (HBS) Routine 08/09/2023 3:55 PM GRATING MACHINE OPERATOR Encounter for supervision of other normal in first trimester TREPONEMA PALLIDUM Routine 08/09/2023 3: 55 PM GRATING MACHINE OPERATOR Encounter for supervision of other normal in first trimester RUBELLA IMMUNE STATUS Routine 08/09/2023 3:55 PM GRATING MACHINE OPERATOR Encounter for supervision of other normal in first trimester ANTI HIV 1/2 Routine 08/09/2023 3:55 PM GRATING MACHINE OPERATOR Encounter for supervision of other normal in first trimester CBC W PLT NO DIFF Routine 08/09/2023 3:5 5 PM GRATING MACHINE OPERATOR Encounter for supervision of other normal in first trimester GC CHLAMYDIA TRACH PROBE Routine 08/09/2023 3:51 PM GRATING MACHINE OPERATOR Encounter for supervision of other normal in first trimester URINE CULTURE Routine 08/09/2023 3:51 PM GRATING MACHINE OPERATOR Encounter for supervision of other normal in first trimester BILINGUAL TEACHER THIN PREP PAP SCREEN IMAGED Routine 07/13/2022 3:15 PM GRATING MACHINE OPERATOR Unprotected sexual intercourse Screening for cervical cancer from Last 3 Months or Most Recently Relevant to Health Maintenance Results * (ABNORMAL) URINALYSIS MICROSCOPIC (11/08/2023 4:11 PM CDT) RBC >100(A) 0-2, None Seen /HPF 11/08/2023 4:19 PM CDT [facility] WBC 0-2 0-2, 3-5, None Seen /HPF 11/08/2023 4:19 PM CDT [facility] BACTERIA Moderate(A ) None Seen, Rare, Few Bacteria/ HPF 11/08/2023 4:19 PM CDT [facility] EPITHELIAL CELLS Few None Seen, Few Epi/HPF 11/08/2023 4:19 PM CDT [facility] Urine URINE SPECIMEN / Unknown Non-Blood / Unknown 11/08/2023 4:11 PM CDT 11/08/2023 4:11 PM CDT Sanjuanita Braun MD URINE [facility] [address] [place] [address], * (ABNORMAL) UA W/ SEDIMENT EXAM REFLEXED PER CRITERIA (11/08/2023 4:11 PM CDT) COLOR Red(A) Yellow Color 11/08/2023 4:19 PM CDT [facility] CLARITY Cloudy(A) Clear Clarity 11/08/2023 4:19 PM CDT [facility] SPECIFIC GRAVITY,URINE Unable to interpret due to interfering substance(A) 1.010, 1.015, 1.020, 1.025 11/08/2023 4:19 PM CDT [facility] PH,URINE Unable to interpret due to interfering substance(A) 6.0, 7.0, 8.0, 5.5, 6.5, 7.5, 8.5 11/08/2023 4:19 PM CDT [facility] UROBILINOGEN, QUALITATIVE Unable to interpret due to interfering substance(A) Normal EU/dl 11/08/2023 4:19 PM CDT [facility] PROTEIN, URINE Unable to interpret due to interfering substance(A) Negative mg/dL 11/08/2023 4:19 PM CDT [facility] GLUCOSE, URINE Unable to interpret due to interfering substance(A) Negative mg/dL 11/08/2023 4:19 PM CDT [facility] KETONES,URINE Unable to interpret due to interfering substance(A) Negative mg/dL 11/08/2023 4:19 PM CDT [facility] BILIRUBIN,URI NE Unable to interpret due to interfering substance(A) Negative 11/08/2023 4:19 PM CDT [facility] OCCULT BLOOD,URINE Unable to interpret due to interfering substance(A) Negative 11/08/2023 4:19 PM CDT [facility] NITRITE Unable to interpret due to interfering substance(A) Negative 11/08/2023 4:19 PM CDT [facility] LEUKOCYTE ESTERASE Unable to interpret due to interfering substance(A) Negative 11/08/2023 4:19 PM CDT [facility] Urine URINE SPECIMEN / Unknown Non-Blood / Unknown 11/08/2023 4:11 PM CDT 11/08/2023 4:11 PM CDT Narrative [facility] - 11/08/2023 4:19 PM CDT Canceled- Interfering Substance Sanjuanita Braun MD URINE Performing Organization Address [facility] Co de Phone Number [facility] [address] [place] [address], [place] [phone] * (ABNORMAL) CREATININE,ISTAT (11/08/2023 3:19 PM CDT) CREATININE, POCT 0.40(L) 0.57 - 1.11 mg/dL 11/08/2023 3:22 PM CDT [facility] Comment:Caution: Patients ta lali Hydroxyurea have falsely increased iStat Creatinine results. Verify creatinine results ordering a Creatinine (93398.2) eGFR >90 >90 mL/min/1.7 3m2 11/08/2023 3:22 PM CDT [facility] Comment:As of 2021, eG FR is calculated by the CKD-EPI creatinine equation without race adjustment. eGFR can be influenced by muscle mass, exercise, and diet. The reported eGFR is an estimation only and is only applicable if the renal function is stable. Blood BLOOD SPECIMEN / Unknown 11/08/2023 3:19 PM CDT 11/08/2023 3:22 PM CDT Sanjuanita Braun MD CHEMISTRY Performing Organization Address [facility] Co de Phone Number [facility] [address] [place] [address], [place] [phone] * US OB BASIC ANATOMY SCREEN SINGLE TA (10/31/2023 11:22 AM CDT) Anatomical Region Laterality Modality , 2or 3 TRIMESTER Ultrasound 10/31/2023 4:17 PM CDT Impressions 10/31/2023 4:17 PM CDT Normal OB ultrasound exam with concordance of clinical and sonographic dating. ??No intrinsic abnormalities noted on anatomic survey. Dictated by Gareth Youssef MD @ 10/31/2023 4:17:34 PM (Electronically Signed) Narrative 10/31/2023 4:17 PM CDT For Patients: ??As a result of the 21st Century Cures Act, medical imaging exams and procedure reports are released immediately into your electronic medical record. ??You may view this report before your referring provider. ??If you have questions, please contact your health care provider. INDICATION: Evaluate anatomy. ?? COMPARISON: 08/26/2023 TECHNIQUE: Real time morris scale imaging of the fetus was performed as well as color Doppler analysis of the umbilical vessels. FINDINGS: Sonographic imaging demonstrates a single living intrauterine gestation. ??Fetus demonstrates a regular cardiac rate of 146 beats per minute. ??Fetus has a vertex position. The placenta lies posteriorly without evidence of placenta previa. ??Amniotic fluid volume appears normal. ??Single deepest vertical pocket: 5.1 cm. The cervix is closed and measures 3.4 cm in length. ??The composite ultrasound gestational age is calculated at 19 weeks 6 days with an estimated sonographic due date of 03/20/2024. The estimated weight is 311 grams which lies at the 39th %. The following biometric measurements were obtained: Biparietal diameter: ?4.5 cm/19 weeks 5 days 39th% Head circumference: ? 17.1 cm/19 weeks 5 days 33rd% Abdominal circumference: 15.2 cm/20 weeks 3 days 63rd% Femur length: ?2.9 cm/19 weeks 1 day 16th% The HC/AC ratio measures: 1.12 range (1.09-1.26) On anatomic survey, there is a normal appearance of the cerebral ventricles, cavum septi pellucidi, cisterna magna and cerebellum. ??The nose, lips, and facial profile appear normal. ??The cervical, thoracic and lumbar spine are well visualized and appear normal. ??There is a normal four-chamber heart view and the left and right ventricular outflow tracts appear normal. The diaphragm and stomach appear normal. The kidneys and bladder also appear normal. ??There is a normal three- vessel cord and cord insertion site. ??The four extremities appear normal. ?? Procedure Note Gareth Youssef MD - 10/31/2023 For Patients: As a result of the Cures Act, medical imagingexams and procedure reports are released immediately into your electronicmedical record. You may view this report before your referring provider.If you have questions, please contact your health care provider. INDICATION: Evaluate anatomy. COMPARISON: 08/26/2023 TECHNIQUE: Real time morris scale imaging of the fetus was performed as well as colorDoppler analysis of the umbilical vessels. FINDINGS: Sonographic imaging demonstrates a single living intrauterine gestation.Fetus demonstrates a regular cardiac rate of 146 beats per minute. Fetushas a vertex position. The placenta lies posteriorly without evidence ofplacenta previa. Amniotic fluid volume appears normal. Single deepestvertical pocket: 5.1 cm. The cervix is closed and measures 3.4 cm inlength. The composite ultrasound gestational age is calculated at 19weeks 6 days with an estimated sonographic due date of 03/20/2024. Theestimated weight is 311 grams which lies at the 39th %. The following biometric measurements were obtained: Biparietal diameter: 4.5 cm/19 weeks 5 days 39th% Head circumference: 17.1 cm/19 weeks 5 days 33rd% Abdominal circumference: 15.2 cm/20 weeks 3 days 63rd% Femur length: 2.9 cm/19 weeks 1 day 16th% The HC/AC ratio measures: 1.12 range (1.09-1.26) On anatomic survey, there is a normal appearance of the cerebralventricles, cavum septi pellucidi, cisterna magna and cerebellum. Thefetal nose, lips, and facial profile appear normal. The cervical,thoracic and lumbar spine are well visualized and appear normal. There chitra normal four-chamber heart view and the left and right ventricularoutflow tracts appear normal. The diaphragm and stomach appearnormal. The kidneys and bladder also appear normal. There is a normalthree-vessel cord and cord insertion site. The four extremitiesappear normal. IMPRESSION: Normal OB ultrasound exam with concordance of clinical and sonographicdating. No intrinsic abnormalities noted on anatomic survey. Dictated by Gareth Youssef MD @ 10/31/2023 4:17:34 PM (Electronically Signed) Sanjuanita Braun MD US * SCAN-LABORATORY REPORT (08/31/2023 12:00 AM GRATING MACHINE OPERATOR) Scanner OTHER * US 1ST TRIMESTER (< 14 weeks) [53247.0] (08/26/2023 9:37 AM GRATING MACHINE OPERATOR) Anatomical Region Laterality Modality , 1ST TRIMESTER Ultrasound Narrative 08/26/2023 4:42 PM GRATING MACHINE OPERATOR OBSTETRICAL ULTRASOUND CLINICAL DATA: ??First trimester exam, evaluate dates. ?? FINDINGS: ??Sonographic imaging demonstrates a single living intrauterine gestation. ??The embryo demonstrates a regular cardiac rate measuring 170 bpm. ??The embryo's crown rump length measurement of 3.5 cm corresponds to a gestation of 10 weeks 3 days with a sonographic due date of 03.20.24. ?? Yolk sac not visualized. ??There are no gross abnormalities noted within the embryo at this early state of development. ??The gestational sac has a normal appearance and there is no evidence of a perigestational hemorrhage. ??The cervix is closed. ??The myometrium appears normal. Simple cyst right ovary 5.4 cm. Unremarkable left ovary. CONCLUSION: ??Normal first trimester OB ultrasound exam. ??Gestational age calculated at 10 weeks 3 days with a sonographic due date of 03.20.24. Sanjuanita Braun MD US * TREPONEMA PALLIDUM (08/09/2023 3:55 PM GRATING MACHINE OPERATOR) TREPONEMA PALLIDUM Non-Reacti ve Non-Reacti ve 08/12/2023 2:29 PM GRATING MACHINE OPERATOR [facility] Blood BLOOD SPECIMEN / Unknown Venipuncture / Unknown 08/09/2023 3:55 PM GRATING MACHINE OPERATOR 08/09/2023 3:56 PM GRATING MACHINE OPERATOR Sanjuanita Braun MD [facility] [address] [place] [address], * RUBELLA IMMUNE STATUS (08/09/2023 3:55 PM GRATING MACHINE OPERATOR) INTERPRETATION Positive 08/13/2023 12:21 PM GRATING MACHINE OPERATOR [facility] NTRAL LABORATORY Comment:Presence of detectab le IgG antibodies. A positive result generally indicates exposure to the virus or previous vaccination, but is not an indication of active infection or stage of disease. RUBELLA IGG ANTIBODY 1.48 >=1.00 Index 08/13/2023 12:21 PM GRATING MACHINE OPERATOR [facility] NTRAL LABORATORY Blood BLOOD SPECIMEN / Unknown Venipuncture / Unknown 08/09/2023 3:55 PM GRATING MACHINE OPERATOR 08/09/2023 3:56 PM GRATING MACHINE OPERATOR Narrative [facility] - 08/13/2023 12:21 PM GRATING MACHINE OPERATOR ??<0.90 ? Negative ?? 0.90-0.99 ?? Equivocal >=1.0 ?Positive Sanjuanita Braun MD SEND OUTS [facility] [address] [place] [address], * TYPE AND SCREEN (08/09/2023 3:55 PM GRATING MACHINE OPERATOR) ABORH O Rh Positive 08/09/2023 10:38 PM GRATING MACHINE OPERATOR [facility] BLOOD BANK ANTIBODY SCREEN Negative Negative 08/09/2023 10:38 PM GRATING MACHINE OPERATOR [facility] LAB BLOOD BANK SPECIMEN EXPIRATION DATE/TIME 08/12/23 23:59 08/09/2023 10:38 PM GRATING MACHINE OPERATOR [facility] LAB BLOOD BANK Blood BLOOD SPECIMEN / Unknown Venipuncture / Unknown 08/09/2023 3:55 PM GRATING MACHINE OPERATOR 08/09/2023 3:56 PM GRATING MACHINE OPERATOR Sanjuanita Braun MD BLOOD BANK [facility] LAB BLOOD BANK [address] [place] [address], * HBSAG (HBS) (08/09/2023 3:55 PM GRATING MACHINE OPERATOR) HBSAG Nonreactive Nonreactive 08/12/2023 2:25 PM GRATING MACHINE OPERATOR [facility] Blood BLOOD SPECIMEN / Unknown Venipuncture / Unknown 08/09/2023 3:55 PM GRATING MACHINE OPERATOR 08/09/2023 3:56 PM GRATING MACHINE OPERATOR Sanjuanita Braun MD [facility] [address] [address], [place] * ANTI HCV (08/09/2023 3:55 PM GRATING MACHINE OPERATOR) Pathologist [facility] HEPATITIS C ANTIBODY Non-Reacti ve Non-React diane 08/12/2023 2:26 PM GRATING MACHINE OPERATOR [facility] Comment:Please note, per www .CDC.gov: If a patient is known to be at high risk of HCV infection, or is symptomatic, and the physician's suspicion of HCV infection is high, HCV RNA testing is often employed and is of diagnostic value, even after an initial negative anti-HCV test result. Blood BLOOD SPECIMEN / Unknown Venipuncture / Unknown 08/09/2023 3:55 PM GRATING MACHINE OPERATOR 08/09/2023 3:56 PM GRATING MACHINE OPERATOR Sanjuanita Braun MD SEND OUTS Performing Organization Address City/[facility]/ZIP Co de Phone Number [facility] [address] [place] [address], * CBC W PLT NO DIFF (08/09/2023 3:55 PM GRATING MACHINE OPERATOR) Pathologist [facility] WHITE BLOOD COUNT 10.8 4.5 - 11.0 thou/cu mm 08/09/2023 4:00 PM GRATING MACHINE OPERATOR [facility] RED BLOOD COUNT 4.35 4.00 - 5.20 mil/cu mm 08/09/2023 4:00 PM GRATING MACHINE OPERATOR [facility] HEMOGLOBIN 12.4 12.0 - 16.0 g/dL 08/09/2023 4:00 PM GRATING MACHINE OPERATOR [facility] HEMATOCRIT 36.8 33.0 - 51.0 % 08/09/2023 4:00 PM GRATING MACHINE OPERATOR [facility] MCV 85 80 - 100 fL 08/09/2023 4:00 PM GRATING MACHINE OPERATOR [facility] MCH 28.5 26.0 - 34.0 pg 08/09/2023 4:00 PM GRATING MACHINE OPERATOR [facility] MCHC 33.7 32.0 - 36.0 g/dL 08/09/2023 4:00 PM GRATING MACHINE OPERATOR [facility] RDW 14.9 11.5 - 15.5 % 08/09/2023 4:00 PM GRATING MACHINE OPERATOR [facility] PLATELET COUNT 336 140 - 440 thou/cu mm 08/09/2023 4:00 PM GRATING MACHINE OPERATOR [facility] MPV 9.7 6.5 - 11.0 fL 08/09/2023 4:00 PM GRATING MACHINE OPERATOR [facility] Blood BLOOD SPECIMEN / Unknown Venipuncture / Unknown 08/09/2023 3:55 PM GRATING MACHINE OPERATOR 08/09/2023 3:56 PM GRATING MACHINE OPERATOR Sanjuanita Braun MD HEMATOLOGY [facility] [address] [place] [address], * ANTI HIV 1/2 (08/09/2023 3:55 PM GRATING MACHINE OPERATOR) HIV-1/HIV-2 SCREEN Non-Reacti ve Non-Reacti ve 08/12/2023 2:25 PM GRATING MACHINE OPERATOR [facility] Comment:HIV-1 p24 and HIV-1/ HIV-2 Ab Not Detected. Blood BLOOD SPECIMEN / Unknown Venipuncture / Unknown 08/09/2023 3:55 PM GRATING MACHINE OPERATOR 08/09/2023 3:56 PM GRATING MACHINE OPERATOR Sanjuanita Braun MD SEND OUTS [facility] LAB[facility] [address] [place] [address], * BILINGUAL TEACHER PROBE - GC CHLAMYDIA DNA PCR [[id number]] (08/09/2023 3:51 PM GRATING MACHINE OPERATOR) CHLAMYDIA PROBE Negative 2:05 AM GRATING MACHINE OPERATOR [facility] N GONORRHOEAE PROBE Negative 08/10/2023 2:05 AM GRATING MACHINE OPERATOR [facility] Other URINE SPECIMEN / Unknown Non-Blood / Unknown 08/09/2023 3:51 PM GRATING MACHINE OPERATOR 08/09/2023 3:51 PM GRATING MACHINE OPERATOR Sanjuanita Braun MD [facility] [address] [place] [address], * (ABNORMAL) URINE CULTURE (08/09/2023 3:51 PM GRATING MACHINE OPERATOR) CULTURE RESULT(A) 08/12/2023 6:56 AM GRATING MACHINE OPERATOR [facility] CULTURE 10,000-50,000 CFU/mL Klebsiella pneumoniae 08/12/2023 6:56 AM GRATING MACHINE OPERATOR [facility] CULTURE <10,000 CFU/mL Multiple organisms probable contaminants 08/12/2023 6:56 AM GRATING MACHINE OPERATOR [facility] Urine URINE SPECIMEN / Unknown Non-Blood / Unknown 08/09/2023 3:51 PM GRATING MACHINE OPERATOR 08/09/2023 3:51 PM GRATING MACHINE OPERATOR Narrative Organism Antibiotic Method Susceptibility Klebsiella pneumoniae TRIMETHOPRIM/SULF <=1/19: S Klebsiella pneumoniae AMPICILLIN >=32: R Klebsiella pneumoniae CEFAZOLIN-UC <=4: S Comment:Cefazolin-UC interpretations are for therapy of uncomplicated UTIs due to E.coli, K.pneumoniae, or P.mirablis. Cefazolin breakpoint is used as a surrogate to predict results for the oral agents - cefdinir, cefuroxime, and cephalexin, when used for therapy of uncomplicated UTIs due to E coli, K, pneumoniae, and P. mirabilis. The FDA recommends cefadroxil susceptibility can be deduced from cefazolin. Klebsiella pneumoniae GENTAMICIN <=1: S Klebsiella pneumoniae CEFTRIAXONE <=1: S Klebsiella pneumoniae CEFTAZIDIME <=1: S Klebsiella pneumoniae LEVOFLOXACIN <=0.12: S Klebsiella pneumoniae CIPROFLOXACIN <=0.25: S Klebsiella pneumoniae PIPERACILLIN/TAZO 32: R Klebsiella pneumoniae AMPICILLIN/SULBACTAM >=32: R Klebsiella pneumoniae CEFEPIME <=1: S Klebsiella pneumoniae TOBRAMYCIN <=1: S Klebsiella pneumoniae MEROPENEM <=0.25: S Klebsiella pneumoniae NITROFURANTOIN 64: I Sanjuanita Braun MD MICROBIOLOGY [facility] [address] [place] [address], * BILINGUAL TEACHER THIN PREP PAP SCREEN IMAGED [[id number]] (07/13/2022 3:15 PM GRATING MACHINE OPERATOR) Case Report Gynecologic Cytology Report ? Case: [id number] ? Authorizing Provider: ??Sanjuanita Braun MD Collected: ? 07/13/2022 1515 ? Ordering Location: ? [facility] ?? Received: ?07/13/2022 1544 ? Clinic ? First Screen: ?Yeyo Tirado ? Specimen: ?BILINGUAL TEACHER ThinPrep Vial Screening, Cervical ? 07/27/2022 10:28 AM [facility] LABORATORY-C ENTRAL LABORATORY INTERPRETATION/ RESULT NEGATIVE FOR INTRAEPITHELIAL LESION OR MALIGNANCY (NIL) (none) 07/27/2022 10:28 AM [facility] [facility]-C ENTRAL LABORATORY NISM(S) Shift in chon suggestive of bacterial vaginosis 07/27/2022 10:28 AM [facility] [facility]-C ENTRAL LABORATORY SPECIMEN ADEQUACY Satisfactory for evaluation No endocervical component seen in a patient 07/27/2022 10:28 AM GRATING MACHINE OPERATOR [facility] LABORATORY-C ENTRAL LABORATORY Date of LMP 03/15/2022 07/27/2022 10:28 AM GRATING MACHINE OPERATOR [facility]-C ENTRAL LABORATORY Last Pap Date first 07/27/2022 10:28 AM [facility] [employer] LABORATORY-C ENTRAL LABORATORY Last Pap Result First Pap/Unknown 10:28 AM [facility] [employer] [facility] ENTRAL LABORATORY Abnormal Pap or [place] Bx in last 5 years No 07/27/2022 10:28 AM GRATING MACHINE OPERATOR [facility] LAB[facility] Menstrual Status 07/27/2022 10:28 AM GRATING MACHINE OPERATOR [facility] [employer] [facility] ENTRAL LABORATORY [place] Bx Done Today No 07/27/2022 10:28 AM [facility] [employer] [facility] ENTRAL LABORATORY Additional Information None given 07/27/2022 10:28 AM [facility] [employer] [facility]-C ENTRAL LABORATORY Comment: Cytology is screened at [facility] Central Laboratory - [address], [place] [address] and [facility] - [address], [place] [address] and [facility] - [address] [place] [address] Interpreted at [facility] - [address] [place] [id number] Automated Review Successful 07/27/2022 10:28 AM [facility] [employer] [facility] ENTRAL LABORATORY Comment:Specimen processed s uccessfully by automated shipwright apprentice device, [employer] Imaging System, [employer] Note The pap test is a screening technique, not a diagnostic procedure. It is used primarily to screen for squamous cancers and precursor lesions. Published studies have shown that it is subject to both false negative and false positive results. The pap test should not be used as the sole means to diagnose or exclude pre-malignant and malignant lesions. 07/27/2022 10:28 AM GRATING MACHINE OPERATOR [facility] LABORATORY-C ENTRAL LABORATORY Other (Cervical) Non-Blood / Unknown 07/13/2022 3:15 PM GRATING MACHINE OPERATOR 07/13/2022 3:44 PM GRATING MACHINE OPERATOR Sanjuanita Braun MD PATHOLOGY/CYTOL OGY [facility] LABORATORY-CENTRAL LABORATORY [address] [place] [address], from Last 3 Months or Most Recently Relevant to Health Maintenance Care Teams Cardiology Clinical Nurse Specialist Relationship Specialty Start Date End Date Sanjuanita Braun MD [address] [place] [address] PCP - General Family Practice 12/16/18
--- NOTE | 2023-11-08 17:21 | US_ITS ---
Patient: DON LLANOS Facility:?[facility] Patient ID:?[id number] Site Patient ID:?[id number] Site :?2000 Study:?US-OB Pelvis LIMITED-11/08/2023 6:41:47 PM Ordering Physician:ARIELLA HERNANDEZ Final Report: INDICATION: Pelvic cramping, cervical length TECHNIQUE: Ultrasound OB pelvis limited, transabdominal. Real-time morris-scale imaging of the fetus was performed without stress testing. COMPARISON: FINDINGS: Sonographic imaging demonstrates a single living intrauterine gestation. Fetus demonstrates a regular cardiac rate of 142 beats per minute. Fetus has a cephalic orientation. Posterior placenta. SDP of amniotic fluid measures 3.6 cm. Normal cervical length measuring 4.4 cm. The right ovary is enlarged by a 6.5 cm simple cyst. IMPRESSION: 1. Single viable intrauterine . 2. Normal cervical length measuring 4.4 cm. 3. 6.5 cm simple cyst within the right ovary. Dictated by Virgil Reynolds MD @ 11/08/2023 7:25:25 PM Signed by:?Virgil Reynolds MD @11/08/2023 7:25:25 PM (Electronic Signature)
--- NOTE | 2023-11-08 17:21 | US_ITS ---
Patient: DON LLANOS Facility:?[facility] Patient ID:?[id number] Site Patient ID:?[id number] Site :?2000 Study:?US-Abdomen RENAL AND BLADDER-11/08/2023 6:40:49 PM Ordering Physician:ARIELLA HERNANDEZ Final Report: INDICATION: Pelvic pain, looking for incarcerated bladder. TECHNIQUE: Ultrasound renal and bladder complete. Ross-scale and color Doppler sonographic images were acquired of the kidneys and urinary bladder. COMPARISON: None. FINDINGS: Right kidney: 12.6 x 4.5 x 5.4 cm. Left kidney: 11.4 x 5.0 x 4.3 cm. Normal echotexture and cortex. No suspicious masses, stones, or hydronephrosis. Bladder: Normal in caliber and appearance. Color Doppler images demonstrate bilateral ureteral jets. IMPRESSION: Unremarkable renal ultrasound. Dictated by Virgil Reynolds MD @ 11/08/2023 7:23:09 PM Signed by:?Virgil Reynolds MD @11/08/2023 7:23:09 PM (Electronic Signature)
[2023-11-08 17:37] VITALS: BP 108/58; PULSE 77; TEMP 36.6
[2023-11-08] MEDS: ACETAMINOPHEN 500 MG TABLET 1000 MG PO (18:10)
--- NOTE | 2023-11-08 18:49 | PM.OBLDTN ---
OB - Triage/Final Diagnosis Visit Information Time Seen by Provider: 18:49 Date Seen: 11/08/23 Date of evaluation: 11/08/23 Narrative: The patient is a 23 year old 3 para 2 at 21 weeks gestation. She presented to labor an delivery with vaginal pressure, concern for ROM. Patient had negative amnisure. She presented to clinic and was evaluated for ongoing vaginal pressure. Reported difficulty passing urine. Castaneda catheter was attempted and unsuccessful by nursing. She presents to center for further evaluation. States she has had pressure in the right lower abdomen. worse with standing, feels better lying down. She feels she cannot pee, but has also not had anything to eat/drink all day. She is not having fevers. She has no pain with urination. Last bm was on Saturday, she has never had constipation before but has miralax at home she uses for her children. She denies pain, describes discomfort. Baby has been moving well. Evaluation Cervical dilation (cm): 0 Vital signs: Vital Signs - 24 hr 11/08/23 17:37 11/08/23 17:37 Temperature 98 F Pulse Rate 77 Blood Pressure 108/58 L Comments: Exam: Resting comfortably Heart: rrr, no murmurs lungs: CTAB Abdomen: Gravid, slight tenderness in RLQ Pelvic: not completed as done with Dr. Braun in clinic. Ultrasound showed 6.5 cm cyst on right ovary, good blood flow, no torsion. Cervical length 4.4 cm Normal renal and bladder ultrasound Fetus (Single) Heart Rate Baseline: 141 Final Diagnosis (1) Ovarian cyst, right: Status: Acute Problem details: Ultrasound shows 6.5 cm right ovarian cyst, good blood flow, no torsion. Tender over this area per US tech. (2) Constipation: Status: Acute Problem details: Patient has not had bm since Saturday, started Miralax during triage (3) Pelvic pressure in female: Status: Acute Problem details: Patient has pelvic pressure, Likely 2/2 above. Was unable to void. Given 2 liters of IV fluids and was able to void 100 then 450 without difficulty. I suspect the inability to void was due to dehydration. Encouraged increased hydration, treating constipation. Kidney and bladder ultrasound normal. Discussed right ovarian cyst and contributing to these symptoms. Will see Dr. Braun on Saturday in follow up. Total Time Spent Total Time Spent: 35
[2023-11-08] MEDS: polyethylene glycoL 3350 17 GM PACK PO (19:19)
[2023-11-08] MEDS: LACTATED RINGERS 1000 ML 1,000 ML 1200 ML IV ×2 (19:20→20:03)
--- NOTE | 2023-11-08 20:10 | PC.OBNST ---
NST Note NST Note Start: 11/08/23 17:21 Freq: ONCE Status: Active Protocol: Document 11/08/23 20:08 ALEXJohnson (Rec: 11/08/23 20:10 SEBASTIAN [id number]) NST Note 3 Para (# of births) 2 EDC 03/20/24 Gestational Age In Weeks & Days 21 Weeks & 0 Days Patient Presented with Complaint(s) of Pain Other Complaints Vaginal and flank pain. Difficulty urinating Reactive Yes Appropriate for Gestational Age Yes RN Lizbeth Singer RN Date 11/08/23 Reactive Yes Appropriate for Gestational Age Yes BATOOL Lopes RN Date 11/08/23 OB NST charge Yes Complete NST Note via Write Note Yes The provider's electronic signature indicates the NST is reactive/appropriate for gestational age. *Note to provider: If an addendum is required, open the patient's chart and click on the note under the Nurse/Allied Health tab.
--- NOTE | 2023-11-23 12:20 | PC.OBNST ---
NST Note NST Note Start: 11/08/23 17:21 Freq: ONCE Status: Complete Protocol: Document 11/08/23 20:08 ALEXJohnson (Rec: 11/08/23 20:10 SEBASTIAN [id number]) NST Note 3 Para (# of births) 2 EDC 03/20/24 Gestational Age In Weeks & Days 21 Weeks & 0 Days Patient Presented with Complaint(s) of Pain Other Complaints Vaginal and flank pain. Difficulty urinating Reactive Yes Appropriate for Gestational Age Yes RN Lizbeth Singer RN Date 11/08/23 Reactive Yes Appropriate for Gestational Age Yes BATOOL Lopes RN Date 11/08/23 OB NST charge Yes Complete NST Note via Write Note Yes The provider's electronic signature indicates the NST is reactive/appropriate for gestational age. *Note to provider: If an addendum is required, open the patient's chart and click on the note under the Nurse/Allied Health tab.
== END 2023-11-08 20:54 | disposition home or self-care (01) ==
LOC: OB OUT 17:04 → OB 17:05
PROVIDERS: PCP Family Medicine; Visit Provider Family Medicine
DX: O34.80 Maternal care for other abnormalities of pelvic organs, unspecified trimester (principal); N83.201 Unspecified ovarian cyst, right side; K59.00 Constipation, unspecified; R10.2 Pelvic and perineal pain
CPT/HCPCS: 59025; 76770; 76815; 81001; 81513; 84112; 87086; 87481; 87661; 93976; G0463; A9270; J7120

== ENCOUNTER 2024-03-05 11:45 | Inpatient (IN) | payer MEDICAID, SELFPAY ==
[2024-03-05] VITALS (36 sets, daily range): BP systolic 103–136; BP diastolic 51–76; PULSE 59–90; RESP 16; TEMP 36.8–36.9; O2SAT 87–100; BMI 32.3
--- OUTSIDE RECORDS SUMMARY | 2024-03-05 10:59 | XMS_ITS | Clinical Summary ---
Author Organization [facility] Address [place], [place] [address] Care Team Providers Care Director Pediatric Name Role Phone Aparna, Sanjuanita Perla MD Primary Care Provider Allergies No known active allergies Medications Medication Sig Dispensed Refills Start Date End Date Status vit 28/iron fum/folic (multivitamin folic acid 1 mg) Take 1 Tablet by mouth once daily. 0 07/13/2022 Active Active Problems Problem Noted Date Diagnosed Date Encounter for supervision of normal in second trimester 12/26/2023 Encounter for supervision of normal in first trimester 08/26/2023 #3 08/13/2023 Overview: Estimated Date of Delivery: 03/14/24 Patient's last menstrual period was 06/08/2023 (approximate). GBS- 28wk labs- GLUCOSE,GESTATIONAL Date Value Ref Range Status 12/26/2023 124 70 - 139 mg/dL Final HEMOGLOBIN Date Value Ref Range Status 12/26/2023 11.0 (L) 12.0 - 16.0 g/dL Final TREPONEMA PALLIDUM Date Value Ref Range Status 12/26/2023 Non-Reactive Non-Reactive Final Last Tdap- 12/26/23 Last Flu vaccine- 2019 OB Labs: ABORH Date Value Ref Range [...] Past Surgical History: . Laterality Date (IA) CT LAP APPENDECTOMY 08/26/14 LAPAROSCOPIC [facility] Problems (from 08/09/23 to present) No problems associated with this episode. Maribel Wni RN ....08/13/2023 12:22 PM Pap smear for [...] History: . Laterality Date ? ? (IA) CT LAP APPENDECTOMY 08/26/14 ? ? LAPAROSCOPIC CHOLECYSTECTOMY 04/23/2019 [facility] No data on file. Problems (from 06/25/22 [...] Surgical History: Procedure Laterality Date ? ? CT LAP APPENDECTOMY 08/26/14 No data on file. 1st pregnacy Problems (from 09/12/18 to present) No problems associated with this episode. NATALIE Lopez.....09/18/2018 10:15 AM Encounters Date Type Department Care Team Description 03/05/2024 Nurse Triage [facility] [address], [place] [id number] Sanjuanita Braun MD 03/05/2024 Telephone [facility] [address] [facility] [address] Sanjuanita Braun MD Appointment 02/26/2024 10:30 AM CDT OB Encounter [facility] [address] [facility] [address] Sanjuanita Braun MD Care (36w5d ) 02/26/2024 Travel 02/06/2024 10:05 AM CDT OB Encounter [facility] [address] [facility] [place] [place] [address] Sanjuanita Braun MD Care (33w 6 days, increased pelvic pressure, cramping) 02/06/2024 Travel 01/23/2024 10:05 AM CDT OB Encounter [facility] [address] [facility] [address] Sanjuanita Braun MD Care (31w 6d/Still has more pressure and the episodes where she might faint.) 01/23/2024 Travel 01/08/2024 3:15 PM CDT OB Encounter [facility] [address] [facility] [place] [address] Sanjuanita Braun MD Care (29 wks 5 days /lower back pain) 01/08/2024 Travel 01/08/2024 Telephone [facility] [address] [facility] [place] [address] Sanjuanita Braun MD Appointment 12/26/2023 10:55 AM CDT OB Encounter [facility] [address] [place] [address] Sanjuanita Braun MD Care (27 wks 6 days) 12/26/2023 Travel from Last 3 Months Immunizations Name [...] Free (age >= 7 Years) 8,09/30/2007,08/05/2007 Tdap 12/26/2023, 3,01/27/2019,07/25 Varicella Vaccine 12/02/2007,08/05/2007 Family History Medical History [...] Outcome GA Total Labor Labor/2nd/3rd Weight Sex Type Anes PTL Lobito A1 A5 Name Clin 2018 Term 39w 1d 16h 00m 3.15 kg (6 lb 15 oz) F Vag Epidur al N Livin g Gracie Tappe r Complications:None Delivery Location:[facility] 2022 Term 37w 4d 3.23 kg (7 lb 2 oz) F Vag N Livin g 9 9 Sharmin la Tappe r, Krmarisol Sanchez MD Complications:None Delivery Location:Hospital ( [place]) Current Summary Episode Dates Number of Fetuses Estimated Date of Delivery 08/09/2023 - Present (03/05/2024) 03/20/2024 (set by Katie Braun MD on 08/26/2023 based on Ultrasound on 08/26/2023) Dating Summary Based On DASH GA Diff Last Menstrual Period on 06/08/2023 (Approximate ) 03/14/2024 +6d Ultrasound on 08/26/2023 03/20/2024 Working GA:10w3d Alternate DASH Entry 03/14/2024 +6d Vitals Pregravid Weight Height TWG (As of 03/05/2024) Pregrav id BMI 1.555 m (5' 1.22) Notes Progress Notes - OB Encounte r - 02/26/2024 - GA:36w5d 02/26/2024 - 36w5d - Sanjuanita Braun MD SUBJECTIVE: Maria Del Rosario Jackson is a 23 y.o. female at 36+5 weeks. 3 days ago, was having more cramping and pelvic pressure. No concerns. See visit comments. OBJECTIVE: see OB vitals flow sheet ASSESSMENT : 36+5 weeks gestation with no complications PLAN: labor signs and symptoms reviewed with patient including pain, cramping, bleeding or leaking fluid. GBS completed today. RTC 1 weeks. Sanjuanita Braun MD .................... 02/26/2024 10:30 AM Progress Notes - OB Encounte r - 02/06/2024 - GA:33w6d 02/06/2024 - 33w6d - Sanjuanita Braun MD SUBJECTIVE: Maria Del Rosario Jackson is a 23 y.o. female at 33+4 weeks. Yesterday some slight cramping for about a minute. Has also been feeling pelvic pressure. . See visit comments. OBJECTIVE: see OB vitals flow sheet ASSESSMENT : 33+4 weeks gestation with no complications PLAN: labor signs and symptoms reviewed with patient including pain, cramping, bleeding or leaking fluid. RTC 2 weeks. Sanjuanita Braun MD .................... 02/06/2024 10:13 AM Progress Notes - OB Encounte r - 01/23/2024 - GA:31w6d 01/23/2024 - 31wd - Sanjuanita Braun MD SUBJECTIVE: Maria Del Rosario Jackson is a 23 y.o. female at 31+6 weeks. Has been feeling more pressure in the pelvis. Has some cramping, no contractions. Also having feeling of feeling faint. See visit comments. OBJECTIVE: see OB vitals flow sheet ASSESSMENT : 31+6 weeks gestation with no complications PLAN: labor signs and symptoms reviewed with patient including pain, cramping, bleeding or leaking fluid. Suspect feeling faint is due to low blood pressure, recommend increasing fluids and sodium intake, standing up slowly to prevent symptoms RTC 2 weeks. Sanjuanita Braun MD .................... 01/23/2024 10:17 AM Progress Notes - OB Encounte r - 01/08/2024 - GA:29w5d 01/08/2024 - w5d - Sanjuanita Braun MD SUBJECTIVE: Maria Del Rosario Jackson is a 23 y.o. female at 29+5 weeks. No concerns other than low back pain radiating into the right leg. See visit comments. OBJECTIVE: see OB vitals flow sheet ASSESSMENT : 29+5 weeks gestation with no complications Low back pain with right sided sciatica. Discussed treatment options, she may consider chiropractor. PLAN: labor signs and symptoms reviewed with patient including pain, cramping, bleeding or leaking fluid. RTC 2 weeks. Sanjuanita Braun MD .................... 01/08/2024 3:23 PM Progress Notes - OB Encounte r - 12/26/2023 - GA:27w6d 12/26/2023 - wd - Sanjuanita Braun MD SUBJECTIVE: Maria Del Rosario Jackson is a 23 y.o. female at 27+6 weeks. She just getting over a URI. Baby is very active. No concerns. See visit comments. OBJECTIVE: see OB vitals flow sheet ASSESSMENT : 27+6 weeks gestation with no complications PLAN: labor signs and symptoms reviewed with patient including pain, cramping, bleeding or leaking fluid. TDaP today. Diabetes, hemoglobin and syphilis screening. RTC 2 weeks. Sanjuanita Braun MD .................... 12/26/2023 11:11 AM Progress Notes - OB Encounte r - 11/28/2023 - GA:23w6d 11/28/2023 - d - Snajuanita Braun MD .SUBJECTIVE: Maria Del Rosario Jackson is a 23 y.o. female at 23+6 weeks. No concerns. See visit comments. OBJECTIVE: see OB vitals flow sheet ASSESSMENT : 23+6 weeks gestation with no complications PLAN: labor signs and symptoms reviewed with patient including pain, cramping, bleeding or leaking fluid. RTC 4 weeks with hemoglobin, diabetes screening and syphilis screening. Also TDaP. Sanjuanita Braun MD .................... 11/28/2023 10:26 AM Progress Notes - OB Encounte r - 11/11/2023 - GA:21w3d 11/11/2023 - - Sanjuanita Braun MD SUBJECTIVE: Maria Del Rosario Jackson is a 23 y.o. female at 21+3 weeks. She is here for follow up on dysuria and frequency and pelvic pressure. She has been hydrating well and feels better, but still having frequency and has some dysuria.Feels this more on the right side when urinating, wonders if related to attempted cath? She also has found the belly band to be helpful for pelvic pressure. See visit comments. OBJECTIVE: see OB vitals flow sheet ASSESSMENT : 21+3 weeks gestation with dysuria in the setting of multiple catheter attempts. Recommend treating for UTI despite negative cultures since these were done prior to cath attempts. Pelvic pressure improved with belly support band. PLAN: labor signs and symptoms reviewed with patient including pain, cramping, bleeding or leaking fluid. RTC 2 weeks as scheduled. Sanjuanita Braun MD .................... 11/11/2023 11:04 AM Progress Notes - OB Encounte r - 11/08/2023 - GA:21w0d 11/08/2023 - d - Stulken , Maribel D, RN Maria Del Rosario Jackson is here today for a straight cath for urinary retention An 8F straight catheter was attempted to be placed through the tract under sterile conditions. Unable to advance catheter all the way into the urethral tract, no urine obtained. Provider notified. Maribel Win RN .................... 11/08/2023 5:19 PM 11/08/2023 - 21w0d - Aparna, Sanjuanita Perla MD SUBJECTIVE: Maria Del Rosario Jackson is a 23 y.o. female at 21 weeks for hospital follow up. She went into labor and delivery last night with vaginal pressure. She had a negative amnisure and wet prep. Her UA was unremarkable, culture is pending. She did not have any contractions seen on tocometer and she was discharged to home. Since last night, she reports if she lays back, she has no discomfort, if she sits up or stands up, she feels like there is an egg in her vagina. She also has urinary frequency, with small amounts and post-void cramping. No dysuria. She has no uterine cramping. Past Medical History: . Date GBS (group B Streptococcus carrier), +RV culture, currently 2018 No Significant Past Medical History Current Medications: Current Outpatient Medications Medication Sig vit 28/iron fum/folic (multivitamin folic acid 1 mg) Take 1 Tablet by mouth once daily. No current facility-administered medications for this visit. Medications have been reviewed by me and are current to the best of my knowledge and ability. No Known Allergies OBJECTIVE: BP 102/65 (Cuff Site: Left Arm, Position: Sitting, Cuff Size: Adult Regular) Pulse 88 Wt 76 kg (167 lb 9.6 oz) LMP 06/08/2023 (Approximate) SpO2 98% BMI 31.44 kg/m?? EXAM: General Appearance: uncomfortable with pain Genitourinary Exam Female: Normal: External genitalia, vulva and vagina appear normal. Cervix is visually closed and thick. Results for orders placed or performed in visit on 11/08/23 CREATININE,ISTAT Result Value Ref Range Status CREATININE, POCT 0.40 (L) 0.57 - 1.11 mg/dL Final eGFR >90 >90 mL/min/1.73m2 Final UA W/ SEDIMENT EXAM REFLEXED PER CRITERIA Result Value Ref Range Status COLOR Red (A) Yellow Color Final CLARITY Cloudy (A) Clear Clarity Final SPECIFIC GRAVITY,URINE Unable to interpret due to interfering substance (A) 1.010, 1.015, 1.020, 1.025 Final PH,URINE Unable to interpret due to interfering substance (A) 6.0, 7.0, 8.0, 5.5, 6.5, 7.5, 8.5 Final UROBILINOGEN,QUALITATIVE Unable to interpret due to interfering substance (A) Normal EU/dl Final PROTEIN, URINE Unable to interpret due to interfering substance (A) Negative mg/dL Final GLUCOSE, URINE Unable to interpret due to interfering substance (A) Negative mg/dL Final KETONES,URINE Unable to interpret due to interfering substance (A) Negative mg/dL Final BILIRUBIN,URINE Unable to interpret due to interfering substance (A) Negative Final OCCULT BLOOD,URINE Unable to interpret due to interfering substance (A) Negative Final NITRITE Unable to interpret due to interfering substance (A) Negative Final LEUKOCYTE ESTERASE Unable to interpret due to interfering substance (A) Negative Final URINALYSIS MICROSCOPIC Result Value Ref Range Status RBC >100 (A) 0-2, None Seen /HPF Final WBC 0-2 0-2, 3-5, None Seen /HPF Final BACTERIA Moderate (A) None Seen, Rare, Few Bacteria/HPF Final EPITHELIAL CELLS Few None Seen, Few Epi/HPF Final ASSESSMENT/PLAN: ICD-10-CM 1. Pelvic pressure in O26.899 CANCELED: US OB CERVICAL LENGTH TV R10.2 2. Urinary obstruction N13.9 CREATININE,ISTAT CT COLLECTION VENOUS BLOOD VENIPUNCTURE UA W/ SEDIMENT EXAM REFLEXED PER CRITERIA URINE CULTURE URINALYSIS MICROSCOPIC Patient felt slightly better after speculum exam and was able to pass a small amount of urine. Attempted baltazar and pediatric cath, however neither was able to pass. Discussed case with all round butcher construction project assistant. Concerning for uterine incarceration, attempted manual reduction, however patient did not tolerate exam. She did feel like she could urinate after, and a small amount of bloody urine sent for UA (See above results). Patient did feel slightly better, and wanted to go home, however then en route felt worse and presented to L&D. Kidney, bladder and OB ultrasound ordered and will decide on further evaluation/treatment based on results. The plan of care was agreed to. Sanjuanita Braun MD .................... 11/08/2023 2:36 PM Progress Notes - OB Encounte r [...] Past Surgical History: . Laterality Date (IA) CT LAP APPENDECTOMY 08/26/14 LAPAROSCOPIC CHOLECYSTECTOMY 04/23/2019 Dr. Bejarano [facility] Family History Problem Relation Age of Onset [...] PHQ-2 TOTAL SCORE 0 Sanjuanita Braun MD CY MANAGER Progress Notes - OB Encounte r - [...] Type: normal vaginal delivery Occupation of patient: [employer] Name of Partner or Father of [...] of estimated date of delivery: No Thalassemia ([place] Citizen, Occitan, Mediterranean, or background): MCV less than 80: No Neural tube defect (Meningomyelocele, Spina bifida, or Anencephaly): No Congenital heart defect: No Down syndrome: No Sagar-Sachs (Ashkenazi Jain, Cajun, Greek Maltese): No Jared disease (Ashkenazi Jain): No Familial dysautonomia (Ashkenazi Jain): No Sickle cell disease or trait (): No Hemophilia or other blood disorders: No Muscular dystrophy: No Cystic fibrosis: No [place]'s chorea: No Intellectual disability and/or autism: No [...] of Beginnings book and book inserts, discussed [id number] medications, and follow up. - Encouraged patient to call clinic at [phone] with any vaginal bleeding, fluid leaking from [...] 08/26/2023 8:15 AM Sanjuanita Braun MD NFLDFP NF 08/26/2023 9:45 AM NFLD ULTRASOUND NFLDMI LD Maribel Win RN .................... 08/09/2023 3:12 PM CY MANAGER Last Filed Vital Signs Vital Sign Reading Time Taken Comments Blood Pressure 98/65 02/26/2024 10:21 AM CDT Pulse 66 02/26/2024 10:21 AM CDT Temperature 36.3 ??C (97.4 ??F) 02/26/2024 10:21 AM C DT Respiratory Rate 15 09/09/2018 3:05 PM POLICY MANAGER Oxygen Saturation 98% 02/26/2024 10:21 AM CDT Inhaled Oxygen Concentration - - Weight 77 kg (169 lb 12.8 oz) 02/26/2024 10:21 A M CDT Height 155.5 cm (5' 1.22) 08/09/2023 3:55 PM CS T Body Mass Index 31.85 08/09/2023 3:55 PM POLICY MANAGER Plan of Treatment Upcoming Encounters Date Type Department Care Team (Late st Contact Info) Description 03/12/2024 10:30 AM CDT OB Encounter [facility] [address] [place] [address] Sanjuanita Braun MD [address] [place] [address] 03/19/2024 10:30 AM CDT OB Encounter [facility] [address] [place] [address] Sanjuanita Braun MD [address] [place] [address] Health Maintenance Due Date Last Done Comments [...] for age 21-65 07/13/2025 07/13/2022 Tetanus booster 12/25/2033 12/26/2023, 11/14, 01/27/2019, Additional history exists HPV series for age 9-26 Completed 09/09/19 13, 10/03/2010, 07/25/2010 HIV for age 15-65 Completed 08/09/2023, , 09/16/2018 Hepatitis C screening for age 18-79 Completed 08/09/2023, 07/13/2022 Tdap Completed 12/26/2023, 11/14, 01/27/2019, Additional history exists Pneumococcal series for age 6-64 Aged Out No longer eligible based on patient's age to complete this topic Procedures Procedure Name Priority Date/Time Associated Diagnosis Comments VAGINAL/RECTAL OB STREP PCR Routine 02/26/2024 10:55 AM CDT Encounter for supervision of other normal in third trimester TREPONEMA PALLIDUM Routine 12/26/2023 12 :50 PM CDT Encounter for supervision of other normal in second trimester HEMOGLOBIN Routine 12/26/2023 12:50 PM CDT Encounter for supervision of other normal in second trimester GLUCOSE,GESTATIONAL Routine 12/26/2023 1 2:50 PM CDT Encounter for supervision of other normal in second trimester ANTI HIV 1/2 Routine 08/09/2023 3:55 PM POLICY MANAGER Encounter for supervision of other normal in first trimester ANTI HCV Routine 08/09/2023 3:55 PM POLICY MANAGER Encounter for supervision of other normal in first trimester FISH BAIT PROCESSING SUPERVISOR THIN PREP PAP SCREEN IMAGED Routine 07/13/2022 3:15 PM POLICY MANAGER Unprotected sexual intercourse Screening for cervical cancer from Last 3 Months or Most Recently Relevant to Health Maintenance Results * VAGINAL/RECTAL OB STREP PCR (02/26/2024 10:55 AM CDT) Vaginal/Rectal OB Strep B PCR Negative 03/02/2024 11:41 AM CDT [facility] Other (Vaginal/Rectal) Non-Blood / Unknown 02/26/2024 10:55 AM CDT 02/26/2024 11:17 AM CDT Sanjuanita Braun MD MICROBIOLOGY [facility] [address] [place] [address], * TREPONEMA PALLIDUM (12/26/2023 12:50 PM CDT) TREPONEMA PALLIDUM Non-Reacti ve Non-Reacti ve 12/26/2023 10:12 PM CDT [facility] Blood BLOOD SPECIMEN / Unknown Venipuncture / Unknown 12/26/2023 12:50 PM CDT 12/26/2023 12:53 PM CDT Sanjuanita Braun MD SEND OUTS [facility] [address] [place] [address], [place] * (ABNORMAL) HEMOGLOBIN (12/26/2023 12:50 PM CDT) Pathologist [facility] HEMOGLOBIN 11.0(L) 12.0 - 16.0 g/dL 12/26/2023 12:58 PM CDT [facility] MCV 89 80 - 100 fL 12/26/2023 12:58 PM CDT [facility] Blood BLOOD SPECIMEN / Unknown Venipuncture / Unknown 12/26/2023 12:50 PM CDT 12/26/2023 12:53 PM CDT Sanjuanita Braun MD HEMATOLOGY Performing Organization Address City/[facility]/ZIP Co de Phone Number [facility] [address] [place] [address], * GLUCOSE,GESTATIONAL (12/26/2023 12:50 PM CDT) [facility] GLUCOSE,GESTAT IONAL 124 70 - 139 mg/dL 12/26/2023 1:03 PM CDT [facility] Blood BLOOD SPECIMEN / Unknown Venipuncture / Unknown 12/26/2023 12:50 PM CDT 12/26/2023 12:53 PM CDT Sanjuanita Braun MD CHEMISTRY [facility] [address] [place] [address], [place] [phone] * ANTI HCV (08/09/2023 3:55 PM POLICY MANAGER) [facility] HEPATITIS C ANTIBODY Non-Reacti ve Non-React diane 08/12/2023 2:26 PM POLICY MANAGER [facility] Comment:Please note, per www .CDC.gov: If a patient is known to be at high risk of HCV infection, or is symptomatic, and the physician's suspicion of HCV infection is high, HCV RNA testing is often employed and is of diagnostic value, even after an initial negative anti-HCV test result. Blood BLOOD SPECIMEN / Unknown Venipuncture / Unknown 08/09/2023 3:55 PM POLICY MANAGER 08/09/2023 3:56 PM POLICY MANAGER Sanjuanita Braun MD SEND OUTS [facility] [address] [place] [id number], [place] * ANTI HIV 1/2 (08/09/2023 3:55 PM POLICY MANAGER) Pathologist [facility] HIV-1/HIV-2 SCREEN Non-Reacti ve Non-Reacti ve 08/12/2023 2:25 PM POLICY MANAGER [facility] Comment:HIV-1 p24 and HIV-1/ HIV-2 Ab Not Detected. Blood BLOOD SPECIMEN / Unknown Venipuncture / Unknown 08/09/2023 3:55 PM POLICY MANAGER 08/09/2023 3:56 PM POLICY MANAGER Sanjuanita Braun MD SEND OUTS Performing Organization Address City/[facility]/ZIP Co de Phone Number [facility] [address] [place] [phone], * FISH BAIT PROCESSING SUPERVISOR THIN PREP PAP SCREEN IMAGED [[id number]] (07/13/2022 3:15 PM POLICY MANAGER) Pathologist [facility] Case Report Gynecologic Cytology Report ? Case: [id number] ? Authorizing Provider: ??Sanjuanita Braun MD Collected: ? 07/13/2022 1515 ? Ordering Location: ? [facility] ?? Received: ?07/13/2022 1544 ? Clinic ? First Screen: ?Yeyo Tirado ? Specimen: ?FISH BAIT PROCESSING SUPERVISOR ThinPrep Vial Screening, Cervical ? 07/27/2022 10:28 AM [facility] INTERPRETATION/ RESULT NEGATIVE FOR INTRAEPITHELIAL LESION OR MALIGNANCY (NIL) (none) 07/27/2022 10:28 AM [facility] LABOR[facility]-C ENTRAL LABORATORY NISM(S) Shift in chon suggestive of bacterial vaginosis 07/27/2022 10:28 AM [facility]-C ENTRAL LABORAT[facility] SPECIMEN ADEQUACY Satisfactory for evaluation No endocervical component seen in a patient 07/27/2022 10:28 AM [facility]-C EN[facility]AL LABORATORY Date of LMP 03/15/2022 07/27/2022 10:28 AM [facility] Last Pap Date first 07/27/2022 10:28 AM [facility] Last Pap Result First Pap/Unknown 10:28 AM [facility] EN[facility]AL LAB[facility] Abnormal Pap or [place] Bx in last 5 years No 07/27/2022 10:28 AM [facility] Menstrual Status 07/27/2022 10:28 AM POLICY MANAGER [facility] [place] Bx Done Today No 07/27/2022 10:28 AM POLICY MANAGER [facility] EN[facility] Additional Information None given 07/27/2022 10:28 AM POLICY MANAGER [facility] EN[facility] Comment: Cytology is screened at [facility] - [address], [place] [address] and [facility] - [address], [place] [address] and [facility] - [address] [place] [address] Interpreted at [facility] - [address] [place] [address] Automated Review Successful 07/27/2022 10:28 AM [facility] Comment:Specimen processed s uccessfully by automated heading and priming operator device, ThinPrep Imaging System, [employer] Note The pap test is a screening technique, not a diagnostic procedure. It is used primarily to screen for squamous cancers and precursor lesions. Published studies have shown that it is subject to both false negative and false positive results. The pap test should not be used as the sole means to diagnose or exclude pre-malignant and malignant lesions. 07/27/2022 10:28 AM [facility] Other (Cervical) Non-Blood / Unknown 07/13/2022 3:15 PM POLICY MANAGER 07/13/2022 3:44 PM POLICY MANAGER Sanjuanita Braun MD PATHOLOGY/[facility]OL [facility] [address] [place] [address], [place] from Last 3 Months or Most Recently Relevant to Health Maintenance Care Teams Director Pediatric Relationship Specialty Start Date End Date Sanjuanita Braun MD [address] [place] [address] PCP - General Family Practice 12/16/18
[2024-03-05 11:25] LABS: Amnisure Rom* POSITIVE
--- NOTE | 2024-03-05 12:13 | P.OBHP_ITS ---
OB - H&P: HPI Labor/Induction History of Present Illness Date Seen: 03/05/24 Chief Complaint: The patient is a 23 year old 3 para 2 at 37+6 weeks gestation by first trimester US, who presents with SROM. Chief complaint: Maternity : 3 Para: 2 Narrative: Maria Del Rosario Jackson is a 23 year old at 37+6 weeks by 1st trimester US who presents with SROM possibly aorund 1400 yesterday. She noted some blood tinged, white, discharge with wiping yesterday which was reminiscent of her SROM with her prior . Baby was active and contractions were rare and mild, so she elected to wait until her visit with me today. She then presented with L&D with positive amnisure. She is GBS negative rH+, rubella immune. has been uncomplicated. History of Present Dating criteria: based on 1st trimester US only care: good care Ultrasounds: normal 1st trimester US and normal mid trimester US Labs Blood type: O (+) positive Rubella: immune RPR/VDLR: nonreactive GBS status: negative HBsAG: negative Review of Systems Status of ROS: Reports: 6 or more systems reviewed and unremarkable except as noted in History and below Meds Home Medications and Allergies Home Medications ?Medication ?Instructions ?Recorded ?Confirmed ?Type PNV cmb#95-ferrous fumarate-FA 1 tab PO DAILY 11/08/23 11/08/23 History Allergies Allergy/AdvReac Type Severity Reaction Status Date / Time No Known Drug Allergies Allergy Verified 11/08/23 19:50 OB - H&P: Exam Physical Exam: Vital signs: Pulse BP 66 105/57 L 03/05/24 11:25 03/05/24 11:25 Constitutional: Constitutional: no acute distress Routine HEENT Exam: Head: Present atraumatic Eye: Present EOMI and PERRL ENT: Present mucous membranes moist Routine Neck Exam: Neck: Present full ROM Routine Respiratory Exam: Respiratory: Present CTA bilaterally Routine Cardiovascular Exam: Cardiovascular: RRR Routine Exam: Perineum Description: Normal Detailed Labor and Delivery Exam: Patient Gravid: Yes Dilation (cm): 3 Effacement (%): 70 Cervix position: posterior Consistency: soft Cervical ripeness score: 8 Contraction frequency (min): 10 Contraction intensity: Mild Fetus (Single): Station: -1 Amniotic Membrane Status: SROM Amniotic Membrane Fluid Description: Clear Heart Rate Baseline: 135 Monitor Accelerations: Present Monitor Decelerations: None Skilled Nursing Variability: Moderate (6-25) Routine Extremities Exam: Extremities: Present full ROM Routine Back/Spine/Pelvis Exam: Back/Spine: full ROM Routine Skin Exam: Present intact and normal turgor Routine Neurological Exam: Present alert, oriented X3 and CN II-XII intact Routine Psychiatric Exam: Present normal affect and normal thought process OB - Problem Based A/P Additional Plan (1) Term : Status: Acute (2) SROM (spontaneous rupture of membranes): Status: Acute Plan Given possible SROM almost 22 hours ago, minimal contractions and favorable cervix, recommend starting pitocin now. Patient desires epidural once more uncomfortable. Anticipate . Delivery/Labor/Induction Plan Induction method: per pitocin protocol
[2024-03-05] MEDS: LACTATED RINGERS 1000 ML 1,000 ML 124 ML IV (12:42)
[2024-03-05] MEDS: OXYTOCIN 30 unit/500 ML in NS 30 UNIT/500 ML BAG IVPB (12:42)
[2024-03-05 12:47] LABS: Basophils Absolute Auto 0.02 K/uL (0.00-0.30); Basophils Percent Auto 0.3 % (0.0-3.0); Eosinophils Absolute Auto 0.12 K/uL (0.00-0.50); Eosinophils Percent Auto 1.8 % (0.0-7.0); Hematocrit 36.5 % (33.0-51.0); Immature Granulocytes Abs Auto 0.01 K/uL (0.00-0.30); Immature Granulocytes Pct Auto 0.1 %; Lymphocytes Percent Auto 23.8 % (20-44); Mean Corpuscular HGB Conc 33 gm/dL (32-36); Mean Corpuscular Hemoglobin 28 pg (26-34); Mean Corpuscular Volume 87 fL (80-100); Neutrophils Absolute Auto 4.51 K/uL (1.7-7.0); Platelet Count* 229 K/uL (140-440); RDW Coefficient of Variation % 14.9 % (11.5-15.5); Red Blood Count 4.22 m/uL (4.00-5.20); White Blood Count* 6.73 K/uL (4.50-11.00)
[2024-03-05 12:51] LABS: Slide Review Reflex No
--- NOTE | 2024-03-05 18:37 | P.OBPN_ITS ---
Subjective Date Seen: 03/05/24 Narrative: Maria Del Rosario has been managing pain with contractions well. Pitocin slowly increased throughout the afternoon. She underwent rupture of a forebag with clear fluid and contractions increased in intensity and frequency. Pitocin turned off. Patient now requesting an epidural. Objective Vital Signs: Last Vital Signs Temp 98.3 F 03/05/24 17:03 Pulse 64 03/05/24 17:45 BP 111/69 03/05/24 17:45 Pelvic Exam Dilation (cm): 5 Effacement (%): 80 Station: -1 Contractions Monitor mode: External Contraction pattern: Regular Contraction intensity: Strong/Firm Pitocin Rate (mU/min): 0 Assessment Assessment: active labor Station: -1 Amniotic Membrane Status: SROM Status: Category l Heart Rate Baseline: 140 [employer] Variability: Moderate (6-25) Monitor Accelerations: Present Monitor Decelerations: None Plan Plan: Continue expectant management. Epidural per patient request.
[2024-03-05] MEDS: LACTATED RINGERS 1000 ML 1,000 ML 515 ML IV (19:26)
[2024-03-05] MEDS: ROPIVACAINE 0.2% 100 ml 100 ML 12 MG EPIDURAL (19:32)
[2024-03-05] MEDS: BUPIVACAINE 0.25% PF 10 ML 10 ML ML EPIDURAL (19:35)
--- NOTE | 2024-03-05 19:38 | P.ANBPRC_ITS ---
[facility] Medical History (Updated 03/05/24 @ 12:23 by Sanjuanita Braun MD) Term ?Z34.90 - Encounter for supervision of normal , unspecified, unspecified trimester (ICD-10) Active labor Surgical History (Updated 03/05/24 @ 12:20 by Sanjuanita Braun MD) S/P cholecystectomy ?Z90.49 - Acquired absence of other specified parts of digestive tract (ICD- 10) S/P appendectomy ?Z90.49 - Acquired absence of other specified parts of digestive tract (ICD- 10) Social History What is your current living situation?: I presently have a place to live Problems where you live: no known problems In the past 12 months, utilities in danger of being shut off: no In past 12 months, lack of transportation kept you from medical appts, meetings, work, or getting things needed for daily living: no In the past 12 mos, have been you worried that your food would run out before you had money to buy more?: never true In the past 12 mos, the food you bought just didn't last and you didn't have money to buy more?: never true Smoking Status: Never smoker Do you use any of these nicotine containing products: None Second hand tobacco smoke exposure: No How often do you have a drink containing alcohol: never AUDIT-C Alcohol total score: 0 Non-prescribed substance use: denies use How often does anyone, including family, friends and others, physically hurt you : never How often does anyone, including family, friends and others, insult or talk down to you: never How often does anyone, including family, friends and others, threaten you with harm: never How often does anyone, including family, friends and others, scream or curse at you: never Meds Home Medications and Allergies Home Medications ?Medication ?Instructions ?Recorded ?Confirmed ?Type PNV cmb#95-ferrous fumarate-FA 1 tab PO DAILY 11/08/23 11/08/23 History Allergies Allergy/AdvReac Type Severity Reaction Status Date / Time No Known Drug Allergies Allergy Verified 11/08/23 19:50 Results Labs Labs: Laboratory Results - last 24 hr 03/05/24 03/05/24 11:13 12:33 WBC 6.73 RBC 4.22 Hgb 12.0 Hct 36.5 MCV 87 MCH 28 MCHC 33 RDW Coeff of Mary 14.9 Plt Count 229 Neut % (Auto) 67.0 Lymph % (Auto) 23.8 [place] % (Auto) 7.0 Eos % (Auto) 1.8 Baso % (Auto) 0.3 Neut # (Auto) 4.51 Lymph # (Auto) 1.60 [place] # (Auto) 0.50 Eos # (Auto) 0.12 Baso # (Auto) 0.02 Abs Immat Gran (auto) 0.01 Imm/Tot Granulo (auto) 0.1 Membrane Rupture POSITIVE Vital Signs Vital Signs: Last Vital Signs Temp 98.3 F 03/05/24 17:03 Pulse 72 03/05/24 19:36 BP 121/68 03/05/24 19:36 Pulse Ox 100 03/05/24 19:36 Weight: 77.7 kg Height: 154.94 cm Anesthesia Procedures Epidural Insertion Patient Location: OB Start Time: 18:50 Stop Time: 19:31 Start Date: 03/05/24 Stop Date: 03/05/24 Reason for Block: procedure for pain Patient Position: sitting Performed By: Allan Kwong Preanesthetic Checklist: IV checked, risks and benefits discussed, monitors and equipment checked, pre-op evaluation, timeout performed and anesthesia consent Prep: chlorhexidine gluconate Monitoring: blood pressure monitoring, continuous pulse oximetry and heart rate Approach: midline Vertebral Space: lumbar (1-5) Epidural Technique: SARANAY saline Needle Type: Tuohy needle Injection Technique: continuous catheter Needle gauge: 17 Needle Length (cm): 10 cm Needle Insertion Depth (cm): 8 Catheter Gauge: 19 Catheter Type: multi-orifice Catheter at skin depth (cm): 14 Test Dose Result: negative and lidocaine 1.5% with epinephrine 1 to 200,000
[2024-03-05] MEDS: fentaNYL 100 MCG/2 ML inj EPIDURAL (19:40)
[2024-03-05] MEDS: LIDOCAINE 2% (PF) 5 ML VIAL EPIDURAL (20:00)
--- NOTE | 2024-03-05 20:37 | W.PM.VAGDEL1 ---
Procedure Delivery date: 03/05/24 Procedure Done: Global Intrapartal Events: ROM >18 Hours (suspected, unknown time of SROM) Delivery augmentation: rupture of membranes (forebag) and pitocin Delivery monitor: external FHT and external uterine Route of delivery: Laceration description: None Estimated blood loss (mL): 50 Anesthesia type: Epidural Narrative: The patient is a 23 year-old admitted on 03/05/2024 at 37 Weeks, 6 Days gestation for + Amnisure with suspected ROM on 03/04/24 at 1400.? Cervical exam on admission was 3.5 cm/70 % effaced/-1 station with membranes ruptured in vertex presentation.? Contractions were every 5-10 minutes.? heart rate demonstrated baseline 140 bpm with moderate variability, + accelerations, - decelerations; a category 1 tracing.? Pitocin was started on admission and then rupture of a forebag occurred at 1741 with clear fluid. At that time, contractions became significantly stronger and more regular and pitocin was discontinued. ? Labor Analgesia:? epidural ? Pitocin:? yes ? Labor onset:? 1819 ? Complete:? 2006 ? Pushing:? 2010 ? heart tones during second stage were category 1. ? At 2021 a viable female infant delivered in vertex OA presentation over intact perineum via spontaneous vaginal delivery.? was placed on maternal abdomen.? Cord was clamped and cut after a 30-60 second delay.? Nose and mouth were bulb suctioned.? Infant weight pending.? 8 at 1 minute and 9 at 5 minutes.? Shoulder dystocia: no.? Nuchal cord: no. ? Placenta delivered spontaneously and complete at 2026 with a 3 vessel cord. ? Mother and were stable after delivery. ? Lacerations:? none. ? Blood loss: 50 mL. Blood loss measurement type: QBL ? Sponge and needles counts are correct.
[2024-03-06 04:00] VITALS: BP 93/54; PULSE 54; RESP 14; TEMP 36.8; O2SAT 100
[2024-03-06 06:44] LABS: Hemoglobin* 11.6 gm/dL (12.0-16.0)
[2024-03-06 08:23] VITALS: BP 113/71; PULSE 65; RESP 16; TEMP 36.6; O2SAT 98
[2024-03-06] MEDS: DOCUSATE SODIUM 100 MG CAPSULE PO (10:11)
[2024-03-06] MEDS: IBUPROFEN 600 MG TABLET PO ×2 (10:11→18:06)
--- NOTE | 2024-03-06 10:25 | PM.ANPOST ---
Post Anesthesia Note Post Anesthesia Note Patient seen: Inpatient Respiratory Status: adequate Cardiovascular Status: adequate Mental Status: baseline Pain: adequate Temp: baseline Anesthetic awareness: no Complications: none Follow care: none
--- NOTE | 2024-03-06 12:33 | P.OBPN_ITS ---
OB - PN:Subj Subjective Time Seen by Provider: 07:15 Date Seen: 03/06/24 Patient comments OB post-: no complaints, pain well controlled, tolerating diet and flatus present infant status: and doing well [place] feeding status: exclusively OB - PN: Obj Exam Physical Exam: Vital signs: Temp Pulse Resp BP Pulse Ox O2 Del Method 97.8 F 65 16 113/71 98 Room Air 03/06/24 08:23 03/06/24 08:23 03/06/24 08:23 03/06/24 08:23 03/06/24 08:23 03/06/24 08:23 Constitutional: Constitutional: no acute distress Routine HEENT Exam: Head: Present atraumatic and normal inspection Routine Neck Exam: Neck: Present full ROM Detailed Neck Exam: Thyroids: Thyroid: Present normal Routine Respiratory Exam: Respiratory: Present CTA bilaterally Routine Cardiovascular Exam: Cardiovascular: Present RRR, S1 and S2 Routine Neurological Exam: Neurological: Present alert and oriented X3 Routine Psychiatric Exam: Psychiatric: Present normal affect OB - PN: Obj Data Labs Labs: Laboratory Results - last 24 hr 03/05/24 03/06/24 12:33 06:15 WBC 6.73 RBC 4.22 Hgb 12.0 11.6 L Hct 36.5 MCV 87 MCH 28 MCHC 33 RDW Coeff of Mary 14.9 Plt Count 229 Neut % (Auto) 67.0 Lymph % (Auto) 23.8 [place] % (Auto) 7.0 Eos % (Auto) 1.8 Baso % (Auto) 0.3 Neut # (Auto) 4.51 Lymph # (Auto) 1.60 [place] # (Auto) 0.50 Eos # (Auto) 0.12 Baso # (Auto) 0.02 Abs Immat Gran (auto) 0.01 Imm/Tot Granulo (auto) 0.1 OB - PN: A/P Delivery Assessment and Plan (1) Term : Status: Resolved (2) SROM (spontaneous rupture of membranes): Status: Resolved (3) Vaginal delivery: Status: Resolved Plan - doing well Plan day: 1 Plan: routine care Comments: Will likely discharge to home tomorrow.
[2024-03-06 12:37] VITALS: BP 97/60; PULSE 76; RESP 16; TEMP 36.6; O2SAT 97
[2024-03-06] MEDS: LANOLIN CREAM 1 APPLIC TOPICAL (12:49)
[2024-03-06] MEDS: ACETAMINOPHEN 500 MG TABLET 1000 MG PO (12:50)
[2024-03-06 17:09] VITALS: BP 102/62; PULSE 71; RESP 16; TEMP 36.7; O2SAT 96
[2024-03-06 18:18] LABS: Rapid Plasma Reagin (RPR) Non Reactive (Non Reactive)
[2024-03-06 21:04] VITALS: BP 108/64; PULSE 74; RESP 16; TEMP 36.4; O2SAT 97
[2024-03-07 06:20] VITALS: BP 99/62; PULSE 75; RESP 16; TEMP 36.7; O2SAT 98
[2024-03-07] MEDS: IBUPROFEN 600 MG TABLET PO (06:20)
--- NOTE | 2024-03-07 09:09 | PM.OBDSVD1 ---
DS: Providers Provider Time Seen by Provider: 09:09 Date Seen: 03/07/24 Date of admission: 03/05/24 11:45 Primary care physician: Sanjuanita Braun MD Admitting Clinician: Sanjuanita Braun MD Attending Physician on discharge: Krupa Ma MD Date of Discharge: 03/07/24 DS: Diagnosis Discharge Diagnosis (1) Vaginal delivery: Status: Resolved Exam Const: Vital Signs, click to edit/add: Vital Signs - 24 hr 03/06/24 12:37 03/06/24 17:09 03/06/24 21:04 Temperature 97.9 F 98.0 F 97.6 F Pulse Rate [Blood Pressure Cuff] 76 71 74 Respiratory Rate 16 16 16 Blood Pressure [Le ft Arm] 97/60 102/62 108/64 Pulse Oximetry 97 96 97 Oxygen Delivery Me thod Room Air Room Air Room Air 03/07/24 06:20 Temperature 98.0 F Pulse Rate [Blood Pressure Cuff] 75 Respiratory Rate 16 Blood Pressure [Le ft Arm] 99/62 Pulse Oximetry 98 Oxygen Delivery Me thod Room Air Documenting provider has reviewed patient's vital signs: yes Common normals: no apparent distress HENMT: Common normals: normocephalic, external ears normal and external nose normal Head and scalp: normocephalic Nose: external nose normal External ear: external ears normal Eye: Common normals: EOMs intact bilaterally Neck & C-Spine: Common normals: full ROM Chest: Common normals: inspection of chest normal Resp: Common normals: normal respiratory effort and clear to auscultation bilaterally Auscultation: clear to auscultation bilaterally Cardio: Common normals: regular rate and regular rhythm Rate: regular rate Rhythm: regular rhythm GI: Common normals: soft to palpation Palpation: soft : Uterus: U/2 Manual OB Exam: deferred Skin: Common normals: no rashes or lesions noted General skin exam: no rashes or lesions noted OB - DS: Summary Hospital Course Hospital Course: The patient is a 23 year old G 3 P 3 at 37.6 weeks gestation that was admitted to the Center on 03/05/24 for active labor after SROM. She had an uncomplicated vaginal delivery. She delivered a viable female . She is breast feeding. the patient has done well. Peripartum Data Infant delivery method: Vaginal Laceration description: None complications: none [place] Gender: Female Discharge Plan: Home Status at Discharge Functional status at discharge: independent ambulation Overall status at discharge: patient is back to baseline Time Spent with Patient Time attestation: Total time spent providing and/or coordinating discharge services: Time spent: Less than 30 minutes Discharge Plan Discharge Disposition: Home, Self-Care Date of Admission: 03/05/24 11:45 Attending Provider on Discharge: Krupa Ma Primary Care Provider: Sanjuanita Braun Condition: Improved Anticipated Discharge Date/Time: 03/07/24 09:06 Discharge Medications: Continued acetaminophen 500 mg Tablet 1,000 mg PO Q6H PRNQty: 30 0RF PNV cmb#95-ferrous fumarate-FA [ Multivitamins] 1 tab PO DAILY Discharge Orders: Discharge Order (Routine); Ordered 03/07/24 Ordered By: Krupa Ma Patient Education: OB Vaginal/Breast Feeding Activity Level: No Restrictions and Activity as Tolerated Activity Detail: Pelvic rest x 6 weeks Discharge Diet: Regular Follow Up Appointments: Sanjuanita Braun MD [Primary Care Provider] - Forms: [facility] Inst[facility] Discharge Comments: See Dr. Braun in Follow up at 6 weeks
[2024-03-07] MEDS: ACETAMINOPHEN 500 MG TABLET 1000 MG PO (11:11)
[2024-03-07] MEDS: DOCUSATE SODIUM 100 MG CAPSULE PO (11:11)
== END 2024-03-07 12:43 | disposition home or self-care (01) | DRG 560 ==
LOC: OB OUT 11:45 → OB 11:45
PROVIDERS: Admitting Provider Family Medicine; PCP Family Medicine; Visit Provider Family Medicine
DX: O42.12 Full-term premature rupture of membranes, onset of labor more than 24 hours following rupture (principal); Z37.0 Single live birth; Z3A.37 37 weeks gestation of pregnancy
CPT/HCPCS: 01967; 36415; 84112; 85018; 85025; 86592; A9270; J0665; J2371; J2795; J3010; J7120